=== PATIENT | female | born 1990 | race Caucasian/White ===

== ENCOUNTER 2017-04-12 23:38 | Emergency (ER) | payer OTHER ==
[~2017-04-12] VITALS: Ht 172.7 cm; Wt 62.0 kg
[2017-04-12 23:43] VITALS: TEMP 36.5; Ht 172.7 cm; Wt 62.0 kg
[2017-04-13 00:06] LABS: BASO % 0.5 %; BASO ABS # 0.04 K/uL (0-0.2); COMPLETE YES; EOS % 2.1 %; HEMATOCRIT 39.4 % (37-47); IG% 0.3 %; LYMPH % 38.1 %; LYMPH ABS # 2.87 K/uL (1.2-3.4); MEAN CORPUSCULAR HEMOGLOBIN 28.8 pg (25-34); MEAN CORPUSCULAR HGB CONC 34.3 g/dl (32-36); MEAN PLATELET VOLUME 10.5 fL (7.4-10.4); MONO % 11.2 %; NEUT % 47.8 %; PLATELET COUNT 251 K/uL (130-400); RED BLOOD COUNT 4.69 M/uL (4.2-5.4); WHITE BLOOD COUNT 7.53 K/uL (4.8-10.8)
[2017-04-13 00:08] LABS: URINE APPEARANCE CLEAR (CLEAR); URINE BILIRUBIN NEG (NEG); URINE COLOR YELLOW; URINE NITRITE NEG (NEG); URINE PH 5.5 (4.5-7.5); URINE SPECIFIC GRAVITY 1.011 (1.000-1.030); UROBILINOGEN NEG (NEG)
--- NOTE | 2017-04-13 00:08 | EMERGENCY ROOM VISIT NOTE ---
History Report prepared by Lucilleibe: Jeanne Mooney Under the Supervision of: Dr. Annika Stoddard D.O. First contact with patient: 23:46 Chief Complaint: ABDOMINAL PAIN Stated Complaint: LEFT SIDED ABDOMINAL PAIN History of Present Illness The patient is a 26 year old female who presents to the Emergency Room with complaints of severe constant lower left sided abdominal pain which started about 30 minutes ago. The patient notes that she started to have pain in her upper abdomen a couple days ago and that it started to travel to her lower abdomen today. The patient has a hernia in her right lower abdomen. She notes some nausea but denies any vomiting or cough. The patient's pain is better since arriving to the ED. The patient's last period was 3 weeks ago, she is not on control, she denies trying to get , and she has no history of gynecologic problems. The patient is self employed. The patient notes her past surgery history only includes oral surgery. Source of History: patient Onset: 30 minutes ago Position: abdomen (LLQ) Symptom Intensity: moderate Timing: constant Associated Symptoms: + nausea, No cough, No vomiting Review of Systems See HPI for pertinent positives & negatives. A total of 10 systems reviewed and were otherwise negative. Past Medical & Surgical Medical Problems: (1) Hernia Family History no pertinent family history stated Social History Smoking Status: Never Smoker Occupation Status: employed Current/Historical Medications No Active Prescriptions or Reported Meds Allergies Coded Allergies: Amoxicillin (Verified Allergy, Unknown, cp, 04/13/17) Physical Exam Vital Signs Date Time Temp Pulse Resp B/P (MAP) Pulse Ox O2 Delivery O2 Flow Rate FiO2 04/13/17 01:47 80 18 118/71 97 Room Air 04/12/17 23:43 36.5 87 18 153/91 96 Room Air Physical Exam HEENT: Head - normocephalic and atraumatic Pupils are equal, round, and reactive to light. Extraocular eye muscles are intact, and sclera are anicteric. Nose - moist nasal mucosa without discharge. Mouth - moist buccal mucosa. Oropharynx is nonerythematous and there is no tonsillar exudate or edema noted. Neck: Supple; no JVD, nuchal rigidity, cervical lymphadenopathy. Heart: Regular rate and rhythm. There is a normal S1 and S2 with no murmurs, clicks, or gallops appreciated. Lungs: Clear to auscultation bilaterally with no wheezes, rales, or rhonchi. Abdomen: Soft, slight tenderness with palpation of left inguinal canal, nondistended, with good bowel sounds. There are no palpable pulsatile masses or hepatosplenomegaly. There is no guarding, rigidity, or rebound noted. Extremities: No evidence of cyanosis, clubbing, or edema. There are easily palpable peripheral pulses. Skin: warm and dry with good turgor and no rashes. Medical Decision & Procedures ER Provider Diagnostic Interpretation: Radiology results as stated below per my review and the radiologist's interpretation: Obstruction series No obvious sign of bowel obstruction, normal bowel gas pattern. Laboratory Results 04/12/17 23:55 Red Blood Count 4.69, Mean Corpuscular Volume 84.0, Mean Corpuscular Hemoglobin 28.8, Mean Corpuscular Hemoglobin Concent 34.3, Mean Platelet Volume 10.5, Neutrophils (%) (Auto) 47.8, Lymphocytes (%) (Auto) 38.1, Monocytes (%) (Auto) 11.2, Eosinophils (%) (Auto) 2.1, Basophils (%) (Auto) 0.5, Neutrophils # (Auto ) 3.60, Lymphocytes # (Auto) 2.87, Monocytes # (Auto) 0.84, Eosinophils # (Auto ) 0.16, Basophils # (Auto) 0.04 04/12/17 23:55 Test 04/12/17 23:50 04/12/17 23:55 Urine Color YELLOW Urine Appearance CLEAR (CLEAR) Urine pH 5.5 (4.5-7.5) Urine Specific [place] 1.011 (1.000-1.030) Urine Protein NEG (NEG) Urine Glucose (UA) NEG (NEG) Urine Ketones NEG (NEG) Urine Occult Blood NEG (NEG) Urine Nitrite NEG (NEG) Urine Bilirubin NEG (NEG) Urine Urobilinogen NEG (NEG) Urine Leukocyte Esterase NEG (NEG) Urine Test NEG (NEG) White Blood Count 7.53 K/uL (4.8-10.8) Red Blood Count 4.69 M/uL (4.2-5.4) Hemoglobin 13.5 g/dL (12.0-16.0) Hematocrit 39.4 % (37-47) Mean Corpuscular Volume 84.0 fL (80-100) Mean Corpuscular Hemoglobin 28.8 pg (25-34) Mean Corpuscular Hemoglobin Concent 34.3 g/dl (32-36) Platelet Count 251 K/uL (130-400) Mean Platelet Volume 10.5 fL (7.4-10.4) Neutrophils (%) (Auto) 47.8 % Lymphocytes (%) (Auto) 38.1 % Monocytes (%) (Auto) 11.2 % Eosinophils (%) (Auto) 2.1 % Basophils (%) (Auto) 0.5 % Neutrophils # (Auto) 3.60 K/uL (1.4-6.5) Lymphocytes # (Auto) 2.87 K/uL (1.2-3.4) Monocytes # (Auto) 0.84 K/uL (0.11-0.59) Eosinophils # (Auto) 0.16 K/uL (0-0.5) Basophils # (Auto) 0.04 K/uL (0-0.2) RDW Standard Deviation 43.8 fL (36.4-46.3) RDW Coefficient of Variation 14.3 % (11.5-14.5) Immature Granulocyte % (Auto) 0.3 % Immature Granulocyte # (Auto) 0.02 K/uL (0.00-0.02) Anion Gap 10.0 mmol/L (3-11) Est Creatinine Clear Calc Drug Dose 89.9 ml/min Estimated GFR () 98.9 Estimated GFR (Non- 85.3 BUN/Creatinine Ratio 11.7 (10-20) Calcium Level 9.6 mg/dl (8.5-10.1) Total Bilirubin 0.3 mg/dl (0.2-1) Direct Bilirubin < 0.1 mg/dl (0-0.2) Aspartate Amino Transf (AST/SGOT) 15 U/L (15-37) Alanine Aminotransferase (ALT/SGPT) 18 U/L (12-78) Alkaline Phosphatase 72 U/L (45-117) Total Protein 8.6 gm/dl (6.4-8.2) Albumin 3.8 gm/dl (3.4-5.0) Lipase 122 U/L (73-393) Laboratory results per my review. ED Course 2348: The patient was evaluated in room B10. A complete history and physical exam was performed. An IV lock was initiated and labs were drawn as above. The patient went for an obstruction series which was unremarkable. 0103: The patient is symptom free. 0111: Upon reevaluation, the patient is resting comfortably. I discussed findings and results with her. She verbalized agreement of the treatment plan. The patient was discharged home. Medical Decision The patient is a 26 year old female who presents to the ED with lower left sided abdominal pain. Differential diagnosis includes inguinal hernia, ovarian torsion, ovarian cyst, ectopic , pyelonephritis, ureteral colic, and cystitis. Lab results show: no leukocytosis, stable H & H, normal renal and glucose, normal lipase and LFT, potassium low at 3.2, normal urine and negative . The patient presents to the emergency department after a sudden onset of left lower quadrant abdominal pain 30 minutes ago. She denies ever having pain like this in the past. While here in the emergency department, the pain completely subsided. The patient is not and has a normal urinalysis. We did talk about the possibility of ovarian torsion and she was instructed to return to the emergency department if the pain itself returned. Otherwise, she'll follow up with her PCP. X-rays of the abdomen show a normal bowel gas pattern. The patient was instructed to take foods time potassium. Medication Reconcilliation Current Medication List: was personally reviewed by me Blood Pressure Screening Patient's blood pressure: Elevated blood pressure Blood pressure disposition: Elevated BP felt to be situational Impression Primary Impression: Left lower quadrant pain Additional Impression: Hypokalemia Scribe Attestation The scribe's documentation has been prepared under my direction and personally reviewed by me in its entirety. I confirm that the note above accurately reflects all work, treatment, procedures, and medical decision making performed by me. Departure Information Dispostion Home / Self-Care Prescriptions No Active Prescriptions or Reported Meds Referrals No Doctor, Assigned (PCP) Forms HOME CARE DOCUMENTATION FORM, IMPORTANT VISIT INFORMATION Patient Instructions ED Abdominal Pain Unkn Cause, My [facility] Additional Instructions Rest. Take a bland diet If you have worsening pain, return to the ER. Otherwise, follow up with your PCP Take foods high in potassium Problem Qualifiers
[2017-04-13 00:11] LABS: MANUAL MICROSCOPIC REQUIRED? NO; REVIEW REQ? NO
[2017-04-13 00:23] LABS: ALT/SGPT 18 U/L (12-78); BLOOD UREA NITROGEN 11 mg/dl (7-18); BUN/CREATININE RATIO 11.7 (10-20); CALCIUM 9.6 mg/dl (8.5-10.1); CARBON DIOXIDE 24 mmol/L (21-32); CHLORIDE 104 mmol/L (98-107); CREATININE 0.92 mg/dl (0.60-1.20); GLUCOSE 90 mg/dl (70-99); POTASSIUM 3.2 mmol/L (3.5-5.1); SODIUM 138 mmol/L (136-145)
[2017-04-13 00:26] LABS: ALKALINE PHOSPHATASE 72 U/L (45-117); AST/SGOT 15 U/L (15-37)
[2017-04-13 01:47] VITALS: BP 118/71; PULSE 80; O2SAT 97
--- NOTE | 2017-04-13 08:03 | DIAGNOSTIC IMAGING REPORT ---
ABDOMEN 2VIEW W/PA CHEST RTN HISTORY: 26 years-old Female left sided abd. pain acute left sided abdominal pain which has progressively worsened. COMPARISON: None available TECHNIQUE: Frontal view of the chest with erect and supine views of the abdomen FINDINGS: Cardiomediastinal and hilar silhouettes are within normal limits. There is no pneumothorax, pleural effusion or focal airspace consolidation. No pneumoperitoneum on the upright projection. Bowel gas pattern is nonobstructive. No urolithiasis or organomegaly. 5 degrees convex right curvature of the lumbar spine is noted which may be accentuated by positioning. No fracture. There are a few air-fluid levels noted within bowel of the right lower quadrant. IMPRESSION: 1. No acute cardiopulmonary process. 2. Nonobstructive bowel gas pattern without pneumoperitoneum. 3. A few air-fluid levels are noted within bowel of the right lower quadrant which appears to be within colon, nonspecific. Differential considerations would include diarrheal state, enteritis or focal ileus. The above report was generated using voice recognition software. It may contain grammatical, syntax or spelling errors. Electronically signed by: Khris Armas M.D. 04/13/2017 8:02 AM Dictated Date/Time: 04/13/2017 7:59 AM
== END 2017-04-13 01:46 | disposition home or self-care (01) ==
LOC: C.EDB 23:39
DX: R10.32 Left lower quadrant pain (principal); E87.6 Hypokalemia

== ENCOUNTER 2017-04-13 07:31 | Emergency (ER) | payer OTHER ==
[~2017-04-13] VITALS: Ht 172.7 cm; Wt 61.2 kg
[2017-04-13 07:32] VITALS: TEMP 36.8; Ht 172.7 cm; Wt 61.2 kg
[2017-04-13] MEDS ORDERED: SODIUM CHLORIDE 0.9% 1000ML 1,000 ML IV STA (07:58)
[2017-04-13] MEDS ORDERED: ONDANSETRON INJ 2 MG/ML 2 ML VIAL IV STA (07:58)
[2017-04-13] MEDS ORDERED: KETOROLAC TROMETHAMINE 15 MG/ML VIAL IV STA ×2 (08:09→09:24)
[2017-04-13] MEDS ORDERED: KETOROLAC TROMETHAMINE 30 MG/ML VIAL ONE ×2 (08:13→09:30)
--- NOTE | 2017-04-13 08:23 | EMERGENCY ROOM VISIT NOTE ---
History First contact with patient: 07:35 Chief Complaint: ABDOMINAL PAIN Stated Complaint: REVISIT; PAIN IN LOWER STOMACH Nursing Triage Summary: patient presents with c/o left sided lower abdominal pain that began yesterday Patient states she also is vomiting, reports liquid emesis twice Was evaluated in the ED last night History of Present Illness The patient is a 26 year old female who presents to the Emergency Room with complaints of persistent left lower quadrant abdominal pain. The patient was seen late last night for pain in the left lower abdomen. Her workup was negative at that time and her pain resolved after about 30 minutes. She states that after returning home, she began having pain again and also developed diarrhea. She states she developed vomiting later that night and has had 2 episodes of vomiting. She states that the vomiting exacerbates her pain. She rates the discomfort a 7/10 when she has pain, but states it is intermittent and she currently does not have any discomfort. She took Aleve without relief. She has not used anything since yesterday evening. She reports that she is concerned she might have ovarian torsion as a pelvic ultrasound was performed yesterday. She also reports she has an older sister with a history of diverticulitis. She denies fevers/chills, urinary symptoms, abnormal vaginal discharge, melena, or hematochezia. She denies history of abdominal surgery. Review of Systems A complete 10 point review of systems was reviewed with the patient with pertinent positives and negatives as per history of present illness. All else were negative. Past Medical/Surgical History Medical Problems: (1) Hernia Social History Smoking Status: Never Smoker Occupation Status: employed Current/Historical Medications No Active Prescriptions or Reported Meds Physical Exam Vital Signs Date Time Temp Pulse Resp B/P (MAP) Pulse Ox O2 Delivery O2 Flow Rate FiO2 04/13/17 10:28 82 16 109/68 100 04/13/17 09:04 84 18 134/74 100 Room Air 04/13/17 07:32 36.8 89 16 123/88 99 Room Air Physical Exam VITALS: Vitals are noted on the nurse's note and reviewed by myself. Vital signs stable. GENERAL: This is a 26-year-old female, in no acute distress, nondiaphoretic, well-developed well-nourished. HEENT: Normocephalic. PERRLA. Mucous membranes moist. Neck is supple without nuchal rigidity. HEART: Regular rate and rhythm without murmurs gallops or rubs. LUNGS: Clear to auscultation bilaterally without wheezes, rales or rhonchi. No retractions or accessory muscle use. ABDOMEN: Positive bowel sounds x 4. Soft, no masses or organomegaly. Tenderness with deep palpation of the left lower quadrant. No guarding or rebound tenderness. MUSCULOSKELETAL: No gross musculoskeletal defects. No pedal edema. No calf tenderness. NEURO: Patient was alert and oriented to person place and time. Medical Decision & Procedures ER Provider Diagnostic Interpretation: PELVIC COMPLETE NON OB FINDINGS: TRANSABDOMINAL: Anteflexed uterus measures 8.4 x 4.7 x 6.4 cm. Endometrium measures 1.5 cm. Urinary bladder is mostly collapsed. Left ovary measures 3.1 x 2.4 cm. Mild free pelvic fluid noted. TRANSVAGINAL: Endometrium measures 1.4 cm. Mild degree of free pelvic fluid is noted within the cul-de-sac and adjacent to the left ovary. Left ovary measures 3.7 x 5.1 x 2.6 cm. Mildly complex cystic structure in the left ovary is seen measuring up to 2.4 cm suggesting involuting follicle. Arterial inflow is documented within the left ovary. Right ovary measures 2.8 x 2.6 x 1.7 cm. Follicles are seen within the right ovary measuring up to 1.7 cm. Arterial inflow is documented within the right ovary. IMPRESSION: 1. No evidence of ovarian torsion. 2. Involuting follicle of the left ovary, 2.4 cm. 3. Mild free pelvic fluid is likely reactive. 4. Normal sonographic appearance of the uterus and endometrium. Laboratory Results 04/13/17 08:20 Red Blood Count 4.94, Mean Corpuscular Volume 83.6, Mean Corpuscular Hemoglobin 27.9, Mean Corpuscular Hemoglobin Concent 33.4, Mean Platelet Volume 10.6, Neutrophils (%) (Auto) 70.8, Lymphocytes (%) (Auto) 17.9, Monocytes (%) (Auto) 10.4, Eosinophils (%) (Auto) 0.4, Basophils (%) (Auto) 0.4, Neutrophils # (Auto ) 5.17, Lymphocytes # (Auto) 1.31, Monocytes # (Auto) 0.76, Eosinophils # (Auto ) 0.03, Basophils # (Auto) 0.03 04/13/17 08:20 Test 9/4/17 08:20 04/13/17 09:36 White Blood Count 7.31 K/uL (4.8-10.8) Red Blood Count 4.94 M/uL (4.2-5.4) Hemoglobin 13.8 g/dL (12.0-16.0) Hematocrit 41.3 % (37-47) Mean Corpuscular Volume 83.6 fL (80-100) Mean Corpuscular Hemoglobin 27.9 pg (25-34) Mean Corpuscular Hemoglobin Concent 33.4 g/dl (32-36) Platelet Count 266 K/uL (130-400) Mean Platelet Volume 10.6 fL (7.4-10.4) Neutrophils (%) (Auto) 70.8 % Lymphocytes (%) (Auto) 17.9 % Monocytes (%) (Auto) 10.4 % Eosinophils (%) (Auto) 0.4 % Basophils (%) (Auto) 0.4 % Neutrophils # (Auto) 5.17 K/uL (1.4-6.5) Lymphocytes # (Auto) 1.31 K/uL (1.2-3.4) Monocytes # (Auto) 0.76 K/uL (0.11-0.59) Eosinophils # (Auto) 0.03 K/uL (0-0.5) Basophils # (Auto) 0.03 K/uL (0-0.2) RDW Standard Deviation 43.9 fL (36.4-46.3) RDW Coefficient of Variation 14.3 % (11.5-14.5) Immature Granulocyte % (Auto) 0.1 % Immature Granulocyte # (Auto) 0.01 K/uL (0.00-0.02) Anion Gap 10.0 mmol/L (3-11) Est Creatinine Clear Calc Drug Dose 97.2 ml/min Estimated GFR () 110.4 Estimated GFR (Non- 95.3 BUN/Creatinine Ratio 13.6 (10-20) Calcium Level 9.9 mg/dl (8.5-10.1) Total Bilirubin 0.4 mg/dl (0.2-1) Aspartate Amino Transf (AST/SGOT) 14 U/L (15-37) Alanine Aminotransferase (ALT/SGPT) 18 U/L (12-78) Alkaline Phosphatase 70 U/L (45-117) Total Protein 8.7 gm/dl (6.4-8.2) Albumin 4.3 gm/dl (3.4-5.0) Globulin 4.4 gm/dl (2.5-4.0) Albumin/Globulin Ratio 1.0 (0.9-2) Urine Color YELLOW Urine Appearance CLEAR (CLEAR) Urine pH 6.5 (4.5-7.5) Urine Specific [place] 1.022 (1.000-1.030) Urine Protein NEG (NEG) Urine Glucose (UA) NEG (NEG) Urine Ketones 1+ (NEG) Urine Occult Blood NEG (NEG) Urine Nitrite NEG (NEG) Urine Bilirubin NEG (NEG) Urine Urobilinogen NEG (NEG) Urine Leukocyte Esterase NEG (NEG) Urine Test NEG (NEG) Medications Administered Medications (Trade) Dose Ordered Sig/Sandeep Route Start Time Stop Time Status Last Admin Dose Admin Sodium Chloride 1,000 ml @ 999 mls/hr Q1H1M STAT IV 04/13/17 07:58 04/13/17 08:58 DC 04/13/17 08:16 999 MLS/HR Ondansetron HCl (Zofran Inj) 4 mg NOW STAT IV 04/13/17 07:58 04/13/17 08:00 DC 04/13/17 08:16 4 MG Ketorolac Tromethamine (Toradol Inj) 30 mg STK-MED ONCE .ROUTE 04/13/17 08:13 04/13/17 08:14 DC 04/13/17 08:17 15 MG Ketorolac Tromethamine (Toradol Inj) 30 mg STK-MED ONCE .ROUTE 04/13/17 09:30 04/13/17 09:31 DC 04/13/17 09:32 15 MG ED Course The patient was evaluated as above. Labs were drawn and IV access was obtained. The patient denies pain at this time and analgesics. The patient began to complain of pain and was medicated with 15 mg Toradol IV. Pelvic ultrasound was performed and read by radiology as above. Patient was reevaluated and was feeling better. Findings were discussed. Repeat exam showed no tenderness. Discharge instructions were reviewed with the patient. The patient verbalized understanding of my assessment and treatment plan and was discharged home in good condition. Medical Decision Differential diagnosis includes ovarian cyst, ovarian torsion, appendicitis, diverticulitis, colitis, urinary tract infection, kidney stone, gastroenteritis , among others. The patient is a 26-year-old female who presents today complaining of left lower quadrant pain. Patient was seen here last night and had labs and an x- ray performed which were all unremarkable. At that time, her pain resolved and she was discharged home. The patient reports that her pain has continued and has been intermittent in nature. On my examination, she has no tenderness and is in minimal pain. Labs were unchanged from previous visit, with no leukocytosis, anemia or electrolyte abnormalities. Urinalysis was not suggestive of infection. There was no blood in the urine. A pelvic ultrasound was performed and did show a left ovarian follicular cyst which may be contributing to the patient's pain. She was informed of this and was instructed to follow-up with [facility]. The patient may also have gastroenteritis contribute into her symptoms today, although the vomiting and diarrhea could also be secondary to stress/anxiety regarding symptoms. Patient was reassured and conservative measures were discussed. I advised her to follow-up with her primary care provider this week for a recheck. Based on the patient's presentation and work up, I feel the patient is stable for outpatient treatment. The patient was educated to return to the emergency department for any worsening of their current condition or new/concerning symptoms. She will follow up with her PCP and [facility]. Medication Reconcilliation Current Medication List: was personally reviewed by me Blood Pressure Screening Patient's blood pressure: Normal blood pressure Impression Primary Impression: Left lower quadrant pain Departure Information Dispostion Home / Self-Care Condition GOOD Prescriptions No Active Prescriptions or Reported Meds Referrals Mirta Ramirez,D.O. (PCP) Patient Instructions My [facility] Additional Instructions Ibuprofen: 600 mg every 6 hours. You should take this regularly for the next 2- 3 days, then as needed for pain. You should take this with a small amount of food, as it can cause inflammation of the stomach. Call the primary care provider to schedule a follow-up this week. Follow-up with [facility]. Return to the emergency department with significantly worsening pain, worsening vomiting, fever, or any other new/concerning symptoms.
[2017-04-13 08:31] LABS: BASO % 0.4 %; BASO ABS # 0.03 K/uL (0-0.2); COMPLETE YES; EOS % 0.4 %; HEMATOCRIT 41.3 % (37-47); IG% 0.1 %; LYMPH % 17.9 %; LYMPH ABS # 1.31 K/uL (1.2-3.4); MEAN CELL VOLUME 83.6 fL (80-100); MEAN CORPUSCULAR HEMOGLOBIN 27.9 pg (25-34); MEAN CORPUSCULAR HGB CONC 33.4 g/dl (32-36); MEAN PLATELET VOLUME 10.6 fL (7.4-10.4); MONO % 10.4 %; NEUT % 70.8 %; PLATELET COUNT 266 K/uL (130-400); RED BLOOD COUNT 4.94 M/uL (4.2-5.4); WHITE BLOOD COUNT 7.31 K/uL (4.8-10.8)
[2017-04-13 08:55] LABS: BUN/CREATININE RATIO 13.6 (10-20); CALCIUM 9.9 mg/dl (8.5-10.1); CREATININE 0.84 mg/dl (0.60-1.20); POTASSIUM 3.8 mmol/L (3.5-5.1)
--- NOTE | 2017-04-13 09:21 | DIAGNOSTIC IMAGING REPORT ---
PELVIC COMPLETE NON OB HISTORY: 26 years-old Female llq pain, vomiting acute left lower quadrant abdominal pain with vomiting. COMPARISON: Acute abdominal series radiographs of same day TECHNIQUE: Multiple real-time sonographic images of the deep pelvic structures were obtained transabdominally and transvaginally assessing grayscale appearance, color and spectral flow. FINDINGS: TRANSABDOMINAL: Anteflexed uterus measures 8.4 x 4.7 x 6.4 cm. Endometrium measures 1.5 cm. Urinary bladder is mostly collapsed. Left ovary measures 3.1 x 2.4 cm. Mild free pelvic fluid noted. TRANSVAGINAL: Endometrium measures 1.4 cm. Mild degree of free pelvic fluid is noted within the cul-de-sac and adjacent to the left ovary. Left ovary measures 3.7 x 5.1 x 2.6 cm. Mildly complex cystic structure in the left ovary is seen measuring up to 2.4 cm suggesting involuting follicle. Arterial inflow is documented within the left ovary. Right ovary measures 2.8 x 2.6 x 1.7 cm. Follicles are seen within the right ovary measuring up to 1.7 cm. Arterial inflow is documented within the right ovary. IMPRESSION: 1. No evidence of ovarian torsion. 2. Involuting follicle of the left ovary, 2.4 cm. 3. Mild free pelvic fluid is likely reactive. 4. Normal sonographic appearance of the uterus and endometrium. The above report was generated using voice recognition software. It may contain grammatical, syntax or spelling errors. Electronically signed by: Khris Armas M.D. 04/13/2017 9:20 AM Dictated Date/Time: 04/13/2017 9:14 AM
[2017-04-13 09:49] LABS: URINE APPEARANCE CLEAR (CLEAR); URINE BILIRUBIN NEG (NEG); URINE COLOR YELLOW; URINE NITRITE NEG (NEG); URINE PH 6.5 (4.5-7.5); URINE SPECIFIC GRAVITY 1.022 (1.000-1.030); UROBILINOGEN NEG (NEG); ZZUR CULT IF INDIC CLEAN CATCH NO
[2017-04-13 09:53] LABS: MANUAL MICROSCOPIC REQUIRED? NO; REVIEW REQ? NO
[2017-04-13 10:28] VITALS: BP 109/68; PULSE 82; O2SAT 100
== END 2017-04-13 10:29 | disposition home or self-care (01) ==
LOC: C.EDB 07:31
DX: R10.32 Left lower quadrant pain (principal); R19.7 Diarrhea, unspecified

== ENCOUNTER 2017-04-16 11:36 | Emergency (ER) | payer OTHER ==
[~2017-04-16] VITALS: Ht 172.7 cm; Wt 61.4 kg
[2017-04-16 11:43] VITALS: TEMP 37; Ht 172.7 cm; Wt 61.4 kg
[2017-04-16] MEDS ORDERED: SODIUM CHLORIDE 0.9% 1000ML 1,000 ML IV STA (12:07)
[2017-04-16] MEDS ORDERED: ONDANSETRON INJ 2 MG/ML 2 ML VIAL IV STA ×2 (12:26→13:38)
[2017-04-16] MEDS ORDERED: OPTIRAY 320 IV PRN (12:30)
[2017-04-16 12:40] LABS: URINE APPEARANCE CLEAR (CLEAR); URINE BILIRUBIN NEG (NEG); URINE COLOR YELLOW; URINE NITRITE NEG (NEG); UROBILINOGEN NEG (NEG); ZZUR CULT IF INDIC CLEAN CATCH NO
[2017-04-16 12:44] LABS: BASO % 0.2 %; BASO ABS # 0.01 K/uL (0-0.2); COMPLETE YES; EOS % 0.5 %; HEMATOCRIT 39.5 % (37-47); IG% 0.2 %; LYMPH % 18.5 %; MEAN CELL VOLUME 85.5 fL (80-100); MEAN CORPUSCULAR HEMOGLOBIN 28.1 pg (25-34); MEAN CORPUSCULAR HGB CONC 32.9 g/dl (32-36); MEAN PLATELET VOLUME 10.6 fL (7.4-10.4); MONO % 7.9 %; NEUT % 72.7 %; PLATELET COUNT 255 K/uL (130-400); RED BLOOD COUNT 4.62 M/uL (4.2-5.4); WHITE BLOOD COUNT 6.47 K/uL (4.8-10.8)
[2017-04-16 12:46] LABS: MANUAL MICROSCOPIC REQUIRED? NO; REVIEW REQ? NO
[2017-04-16 13:04] LABS: BUN/CREATININE RATIO 8.7 (10-20); CALCIUM 9.6 mg/dl (8.5-10.1); CREATININE 0.93 mg/dl (0.60-1.20); POTASSIUM 3.5 mmol/L (3.5-5.1)
[2017-04-16 13:26] LABS: PREG INTERNAL NEGATIVE QC NEG CLEAR BACKGROUND; PREG INTERNAL POSITIVE QC POS CONTROL LINE
[2017-04-16] MEDS ORDERED: KETOROLAC TROMETHAMINE 30 MG/ML VIAL IV STA (13:38)
--- NOTE | 2017-04-16 14:53 | DIAGNOSTIC IMAGING REPORT ---
CT OF THE ABDOMEN AND PELVIS WITH CONTRAST CLINICAL HISTORY: Left-sided abdominal pain. Chills. COMPARISON STUDY: Abdominal series and pelvic ultrasound April 13, 2017 TECHNIQUE: Following IV administration of 93 mL of Optiray-320, axial images of the abdomen and pelvis were obtained from the lung bases to the proximal femurs. Images were reviewed in the axial, sagittal, and coronal planes. IV contrast was administered without complication. A dose lowering technique was utilized adhering to the principles of ALARA. Oral contrast was administered. CT DOSE: 397.54 mGycm FINDINGS: Lung bases are clear. The liver, spleen, adrenal glands, kidneys and pancreas are unremarkable. There is no biliary or pancreatic ductal dilatation. There is no hydronephrosis. A small amount of fluid is noted within the pelvis. This fluid measures just above water attenuation. There is no evidence for a bowel obstruction. The appendix is normal. Apparent wall thickening of the sigmoid colon is likely due to underdistention. There is mild asymmetric enlargement of the left ovary. A 3.8 cm hyperdensity within left ovary is noted. Skeletal structures are unremarkable. IMPRESSION: 1. 3.8 cm hyperdense focus with the left ovary. Statistically, this represents a hemorrhagic cyst. However, a follow-up pelvic ultrasound in 6 weeks is recommended to exclude the less likely possibility of mass or endometrioma. 2. Small amount of fluid within the pelvis. 3. No bowel obstruction. Normal appendix. 4. Apparent mild wall thickening of the sigmoid colon. This is likely due to underdistention. A nonspecific colitis could appear similar although is considered less likely. Electronically signed by: Kirk Thomas M.D. 04/16/2017 2:52 PM Dictated Date/Time: 04/16/2017 2:40 PM
[2017-04-16 16:10] VITALS: BP 105/72; PULSE 80; O2SAT 99
--- NOTE | 2017-04-16 21:34 | EMERGENCY ROOM VISIT NOTE ---
History Report prepared by Nena: Rayray Anguiano Under the Supervision of: Dr. Brigido Friedman M.D. First contact with patient: 12:04 Chief Complaint: ABDOMINAL PAIN Stated Complaint: VOMITTING,NAUSIA,ABDOMINAL PAIN Nursing Triage Summary: Patient reports left lower quadrant pain ongoing this week. Patient also having n/v/d Seen here twice this week with same symptoms History of Present Illness The patient is a 26 year old female who presents to the Emergency Room with complaints of waxing and waning left lower quadrant pain that started 4 days ago. She says that she was seen here twice within 24 hours of the onset of symptoms, and during her second visit here, she was diagnosed with a small ovarian cyst from an ultrasound. The patient states that she has had a minimal appetite since the onset of pain, but has been able to drink some fluids. She adds that the pain sometimes radiates to her left flank. The patient notes that she has been having bad nausea and chills this week as well. She states that she has a hernia, and has been starting to get some pain in her right lower quadrant this week, and the pain is above the leg crease, without any pain around her thigh. The patient states that she did not have a bowel movement between 3 days ago and yesterday, but did have a bowel movement last night, which was normal without any melena or hematochezia. She does note that the bowel was a bit ict account manager in color. The patient says that she currently rates her left lower quadrant pain as a 5 out of 10 in severity. She says that for the past couple days, the pain has been waxing and waning, but the first couple days of the pain, the pain was constant and sharp. She states that Ibuprofen relieves the pain a bit, and the last Ibuprofen was 2000 last night. She notes that she saw her [facility] yesterday, and had an internal OBGYN examination as well as another ultrasound, which confirmed the small ovarian cyst. She states that this morning, she woke up and felt so weak, but she has not been sleeping well. The patient called her OBGYN back, and was told to come here to get her appendix checked. The patient notes no family history of inflammatory bowel issues, but does have a family history of kidney stones and cancer. The patient has no history of abdominal surgeries, and still has her major organs. Pt denies LOC, headache, fevers, diaphoresis, visual changes, neck pain, chest pain, breathing difficulties, back pain, urinary symptoms, numbness, weakness, lymphadenopathy, rash, or other complaints. Source of History: patient Onset: 4 days ago Position: abdomen (LLQ) Symptom Intensity: currently 5/10 Quality: sharp (especially initially) Timing: waxes/wanes Modifying Factors (Relieving): ibuprofen Associated Symptoms: + chills, + nausea, + abdominal pain (including some pain around hernia), + weakness Note: Associated symptoms: No bowel movement for 3 days, but did have one last night. Minimal appetite, not sleeping well. Some radiation of pain to left flank. Review of Systems See HPI for pertinent positives and negatives. A total of ten systems were reviewed and were otherwise negative. Past Medical & Surgical Medical Problems: (1) Hernia Family History Cancer Kidney stones Social History Smoking Status: Never Smoker Marital Status: single Occupation Status: employed Current/Historical Medications No Active Prescriptions or Reported Meds Allergies Coded Allergies: Amoxicillin (Verified Allergy, Unknown, cp, 04/16/17) Physical Exam Vital Signs Date Time Temp Pulse Resp B/P (MAP) Pulse Ox O2 Delivery O2 Flow Rate FiO2 04/16/17 16:10 80 18 105/72 99 04/16/17 15:02 78 16 143/76 99 Room Air 04/16/17 13:46 84 20 120/74 100 Room Air 04/16/17 11:43 37.0 80 18 141/83 99 Room Air Physical Exam GENERAL: Awake, alert, well-appearing, in no distress HENT: Normocephalic, atraumatic. Oropharynx unremarkable. EYES: Normal conjunctiva. Sclera non-icteric. NECK: Supple. No nuchal rigidity. FROM. No JVD. RESPIRATORY: Clear to auscultation. CARDIAC: Regular rate, normal rhythm. Extremities warm and well perfused. Pulses equal. ABDOMEN: Soft, non-distended. Right lower quadrant tenderness. Minimal left- sided discomfort. Negative obturator psoas. No rebound or guarding. No masses. RECTAL: Deferred. MUSCULOSKELETAL: Chest examination reveals no tenderness. The back is symmetrical on inspection without obvious abnormality. There is no CVA tenderness to palpation. No joint edema. LOWER EXTREMITIES: Calves are equal size bilaterally and non-tender. No edema. No discoloration. NEURO: Normal sensorium. No sensory or motor deficits noted. SKIN: No rash or jaundice noted. Medical Decision & Procedures ER Provider Diagnostic Interpretation: CT: Radiology results as stated below per my review and radiologist interpretation CT OF THE ABDOMEN AND PELVIS WITH CONTRAST CLINICAL HISTORY: Left-sided abdominal pain. Chills. COMPARISON STUDY: Abdominal series and pelvic ultrasound April 13, 2017 TECHNIQUE: Following IV administration of 93 mL of Optiray-320, axial images of the abdomen and pelvis were obtained from the lung bases to the proximal femurs. Images were reviewed in the axial, sagittal, and coronal planes. IV contrast was administered without complication. A dose lowering technique was utilized adhering to the principles of ALARA. Oral contrast was administered. CT DOSE: 397.54 mGycm FINDINGS: Lung bases are clear. The liver, spleen, adrenal glands, kidneys and pancreas are unremarkable. There is no biliary or pancreatic ductal dilatation. There is no hydronephrosis. A small amount of fluid is noted within the pelvis. This fluid measures just above water attenuation. There is no evidence for a bowel obstruction. The appendix is normal. Apparent wall thickening of the sigmoid colon is likely due to underdistention. There is mild asymmetric enlargement of the left ovary. A 3.8 cm hyperdensity within left ovary is noted. Skeletal structures are unremarkable. IMPRESSION: 1. 3.8 cm hyperdense focus with the left ovary. Statistically, this represents a hemorrhagic cyst. However, a follow-up pelvic ultrasound in 6 weeks is recommended to exclude the less likely possibility of mass or endometrioma. 2. Small amount of fluid within the pelvis. 3. No bowel obstruction. Normal appendix. 4. Apparent mild wall thickening of the sigmoid colon. This is likely due to underdistention. A nonspecific colitis could appear similar although is considered less likely. Electronically signed by: Kirk Thomas M.D. 04/16/2017 2:52 PM Dictated Date/Time: 04/16/2017 2:40 PM Laboratory Results 04/16/17 12:15 Red Blood Count 4.62, Mean Corpuscular Volume 85.5, Mean Corpuscular Hemoglobin 28.1, Mean Corpuscular Hemoglobin Concent 32.9, Mean Platelet Volume 10.6, Neutrophils (%) (Auto) 72.7, Lymphocytes (%) (Auto) 18.5, Monocytes (%) (Auto) 7.9, Eosinophils (%) (Auto) 0.5, Basophils (%) (Auto) 0.2, Neutrophils # (Auto) 4.71, Lymphocytes # (Auto) 1.20, Monocytes # (Auto) 0.51, Eosinophils # (Auto) 0.03, Basophils # (Auto) 0.01 04/16/17 12:15 Test 04/16/17 11:50 04/16/17 12:15 Urine Color YELLOW Urine Appearance CLEAR (CLEAR) Urine pH 5.0 (4.5-7.5) Urine Specific Spring 1.020 (1.000-1.030) Urine Protein NEG (NEG) Urine Glucose (UA) NEG (NEG) Urine Ketones TRACE (NEG) Urine Occult Blood NEG (NEG) Urine Nitrite NEG (NEG) Urine Bilirubin NEG (NEG) Urine Urobilinogen NEG (NEG) Urine Leukocyte Esterase NEG (NEG) White Blood Count 6.47 K/uL (4.8-10.8) Red Blood Count 4.62 M/uL (4.2-5.4) Hemoglobin 13.0 g/dL (12.0-16.0) Hematocrit 39.5 % (37-47) Mean Corpuscular Volume 85.5 fL (80-100) Mean Corpuscular Hemoglobin 28.1 pg (25-34) Mean Corpuscular Hemoglobin Concent 32.9 g/dl (32-36) Platelet Count 255 K/uL (130-400) Mean Platelet Volume 10.6 fL (7.4-10.4) Neutrophils (%) (Auto) 72.7 % Lymphocytes (%) (Auto) 18.5 % Monocytes (%) (Auto) 7.9 % Eosinophils (%) (Auto) 0.5 % Basophils (%) (Auto) 0.2 % Neutrophils # (Auto) 4.71 K/uL (1.4-6.5) Lymphocytes # (Auto) 1.20 K/uL (1.2-3.4) Monocytes # (Auto) 0.51 K/uL (0.11-0.59) Eosinophils # (Auto) 0.03 K/uL (0-0.5) Basophils # (Auto) 0.01 K/uL (0-0.2) RDW Standard Deviation 43.8 fL (36.4-46.3) RDW Coefficient of Variation 14.0 % (11.5-14.5) Immature Granulocyte % (Auto) 0.2 % Immature Granulocyte # (Auto) 0.01 K/uL (0.00-0.02) Anion Gap 8.0 mmol/L (3-11) Est Creatinine Clear Calc Drug Dose 88.1 ml/min Estimated GFR () 97.6 Estimated GFR (Non- 84.2 BUN/Creatinine Ratio 8.7 (10-20) Calcium Level 9.6 mg/dl (8.5-10.1) Total Bilirubin 0.5 mg/dl (0.2-1) Direct Bilirubin 0.1 mg/dl (0-0.2) Aspartate Amino Transf (AST/SGOT) 8 U/L (15-37) Alanine Aminotransferase (ALT/SGPT) 17 U/L (12-78) Alkaline Phosphatase 59 U/L (45-117) Total Protein 8.0 gm/dl (6.4-8.2) Albumin 3.7 gm/dl (3.4-5.0) Lipase 93 U/L (73-393) Human Chorionic Gonadotropin, Qual NEG (NEG) Laboratory results reviewed by me Medications Administered Medications (Trade) Dose Ordered Sig/Sandeep Route Start Time Stop Time Status Last Admin Dose Admin Sodium Chloride 1,000 ml @ 999 mls/hr Q1H1M STAT IV 04/16/17 12:07 04/16/17 13:07 DC 04/16/17 12:19 999 MLS/HR Ondansetron HCl (Zofran Inj) 4 mg NOW STAT IV 04/16/17 12:26 04/16/17 12:27 DC 04/16/17 12:58 4 MG Ondansetron HCl (Zofran Inj) 4 mg NOW STAT IV 04/16/17 13:38 04/16/17 13:39 DC 04/16/17 13:44 4 MG Ketorolac Tromethamine (Toradol Inj) 15 mg NOW STAT IV 04/16/17 13:38 04/16/17 13:39 DC 04/16/17 13:44 15 MG ED Course 1206: Past medical records reviewed: The patient was seen here on the 4th of this month twice. Labs and imaging were unremarkable. Vital signs were stable and she was treated conservatively and recommended to follow-up with OBGYN. 1207: Ordered NSS 1000 ml @ 999 mls/hr IV, Zofran Inj 4 mg IV. 1217: The patient was evaluated in room B10. A complete history and physical exam was performed. 1315: I reevaluated the patient and she is doing well. 1337: I reevaluated the patient and she is having some nausea and pain. 1338: Ordered Toradol Inj 15 mg IV. 1557: I reevaluated the patient and she is doing well. I updated her on the findings. The patient verbally expressed understanding and agreement of the treatment plan. The patient will be discharged. Medical Decision Triage Nursing notes reviewed. The patient's presentation and history were concerning for abdominal pain. Etiologies such as enteritis, mesenteric adenitis, appendicitis, diverticulitis , ovarian cyst, , obstruction, inflammatory bowel disease, renal colic , PUD, biliary pathology, pancreatitis, mesenteric ischemia, aortic pathology, infections, genitourinary, UTI, perforated viscus, tubo-ovarian abscess, PID, as well as others were entertained. The patient was evaluated. She was hydrated and treated with Zofran. She declined analgesia. She had tenderness in the right lower quadrant on examination but complained of pain there as well as pain in the left lower quadrant and left lateral abdomen. She had no appreciable tenderness on palpation of the left side of her abdomen. She did not have peritoneal findings. Her history was concerning as she has had persistent symptoms but also notes feeling chilled and has lost about 6 pounds since the start of her illness. She had unremarkable imaging done here. She had a repeat ultrasound and internal WH[facility] S[facility]ER examination done yesterday by her report. She noted her internal pelvic examination was normal. She denied having any significant tenderness. This would make PID, cervicitis, or uterine pathology unlikely. There is no clear evidence of torsion on imaging. Her history is not supportive of that. The patient had laboratory testing performed and CT imaging ordered to further elucidate the cause of her persistent symptoms especially in light of the chills and anorexia. Her CBC, chemistry panel, LFTs , lipase, and urinalysis were unremarkable. test is negative. The patient was reassessed and is tolerating her CT prep. She was informed of the laboratory results. The patient was treated with Toradol and Zofran and she had some increased symptoms. She underwent CT imaging and this did reveal some increase in size in the left ovarian cyst with what appears to be a small hemorrhagic component. The patient had a normal appendix. There was some questionable colitis as well. The patient did have diarrhea. The findings suggest that she had a ruptured cyst with some hemorrhagic component. She may also have had a mild colitis given the GI symptoms. Clinically she is doing very well at this time. Her symptoms were controlled with NSAIDs and Zofran. I discussed close follow-up with the patient. Repeat ultrasound imaging will be necessary. If she worsens in any way she will come back to the emergency department for reevaluation. The patient was educated. Warning signs and symptoms discussed. I gave my usual and customary discussion regarding this issue. By the evaluation outlined above other emergent etiologies such as those listed in the differential, as well as others, were deemed relatively unlikely. The patient was educated about the findings as listed above. All questions were answered and the patient was pleased with the treatment. Return instructions were outlined and the patient was discharged in stable condition. The patient was referred to her PCP for follow-up for a recheck of the current condition. Medication Reconcilliation Current Medication List: was personally reviewed by me Blood Pressure Screening Patient's blood pressure: Elevated blood pressure Blood pressure disposition: Elevated BP felt to be situational Impression Primary Impression: Lower abdominal pain Additional Impressions: Hemorrhagic ovarian cyst Colitis Scribe Attestation The scribe's documentation has been prepared under my direction and personally reviewed by me in its entirety. I confirm that the note above accurately reflects all work, treatment, procedures, and medical decision making performed by me. Departure Information Dispostion Home / Self-Care Prescriptions No Active Prescriptions or Reported Meds Referrals Mirta Ramirez D.O. (PCP) Forms HOME CARE DOCUMENTATION FORM, IMPORTANT VISIT INFORMATION, Work Instructions Patient Instructions My [facility] Additional Instructions Ibuprofen(Motrin, Advil) may be used for fever or pain. Use 600mg every six hours as needed. Take with food. Avoid using more than 2400mg in a 24 hour period. Do not use 2400mg per day for more than three consecutive days without physician direction. Prolonged inappropriate use can lead to stomach upset or ulcers. (AND/OR) Acetaminophen(Tylenol) may be used for fever or pain. Use 1000mg every six hours as needed. Avoid using more than 4000mg in a 24 hour period. Rest and drink plenty of fluids as tolerated. Slow sips of water or sports drinks are recommended instead of large amounts all at once. Continue current medications. Return to the ER immediately for worsening or persistent abdominal pain, vomiting, fevers, chest pains, difficulty breathing, black or bloody stools, worsening flank pain, passing out, worsening of your condition, or as needed. Follow up with your primary physician first thing next week for a recheck of your current condition. A repeat pelvic ultrasound will be necessary in 4-6 weeks to evaluate the ovarian cyst. Problem Qualifiers
== END 2017-04-16 16:10 | disposition home or self-care (01) ==
LOC: C.EDB 11:38
DX: K52.9 Noninfective gastroenteritis and colitis, unspecified (principal); N83.202 Unspecified ovarian cyst, left side; Z80.9 Family history of malignant neoplasm, unspecified; Z84.1 Family history of disorders of kidney and ureter

== ENCOUNTER 2017-08-09 16:51 | Emergency (ER) | payer OTHER ==
[~2017-08-09] VITALS: Ht 172.7 cm; Wt 59.0 kg
[2017-08-09 16:55] VITALS: TEMP 36.7; Ht 172.7 cm; Wt 59.0 kg
[2017-08-09] MEDS ORDERED: NAPR1TAB9 PO (17:30)
[2017-08-09 17:47] LABS: HEMATOCRIT 40.6 % (37-47); HEMOGLOBIN 13.7 g/dL (12.0-16.0); MEAN CELL VOLUME 83.5 fL (80-100); MEAN CORPUSCULAR HEMOGLOBIN 28.2 pg (25-34); MEAN CORPUSCULAR HGB CONC 33.7 g/dl (32-36); MEAN PLATELET VOLUME 10.5 fL (7.4-10.4); PLATELET COUNT 304 K/uL (130-400); RED CELL DISTRIBUTION WIDTH CV 13.5 % (11.5-14.5); RED CELL DISTRIBUTION WIDTH SD 41.4 fL (36.4-46.3); WHITE BLOOD COUNT 7.31 K/uL (4.8-10.8)
--- NOTE | 2017-08-09 18:02 | DIAGNOSTIC IMAGING REPORT ---
CHEST ONE VIEW PORTABLE CLINICAL HISTORY: CHEST PAIN dyspnea COMPARISON STUDY: 04/13/2017 FINDINGS: The bones soft tissues and hemidiaphragms are normal. The cardiomediastinal silhouette is normal. The lungs are clear. The pulmonary vasculature is normal. IMPRESSION: Negative chest. The above report was generated using voice recognition software. It may contain grammatical, syntax or spelling errors. Electronically signed by: Tito Manrique M.D. 08/09/2017 6:01 PM Dictated Date/Time: 08/09/2017 6:01 PM
--- NOTE | 2017-08-09 18:06 | EMERGENCY ROOM VISIT NOTE ---
History Report prepared by Nena: Corine Quiñonez Under the Supervision of: Dr. Messi Moreira M.D. First contact with patient: 16:59 Chief Complaint: CARDIAC ASSESSMENT Stated Complaint: CHEST PRESSURE History of Present Illness The patient is a 27 year old female who presents to the Emergency Room for a cardiac assessment. The patient states that she noticed constant pressure in the center of her chest 2-3 days ago. She states that she came to the ED today because it wasn't going away and she was worried about it. She reports that it kept her up last night. She states that the pain gets better when she is lying in certain positions. She denies anything making it worse. The patient notes that she had similar chest pain months ago that her PCP thought was a muscle after she had a normal ECG. She notes that she has not exercised recently due to a hernia and only did a little non strenuous work outside with her fiance. She notes that she went to [place] for [employer], but traveling that long is normal. The patient denies shortness of breath, back pain, shoulder pain, jaw pain, fever, cough, congestion, nausea, leg swelling, leg cramping, and diaphoresis. The patient denies a family history of blood clots and being on control. She notes that she had a CT done for an ovarian cyst in April. Source of History: patient Onset: 3 days ago Position: chest Quality: pressure Timing: constant Modifying Factors (Relieving): other (certain positions) Associated Symptoms: No fevers, No diaphoresis, No cough, No SOB, No nausea , No back pain Note: The patient denies shoulder pain, jaw pain, congestion, leg swelling, and leg cramping. Review of Systems See HPI for pertinent positives & negatives. A total of 10 systems reviewed and were otherwise negative. Past Medical & Surgical Medical Problems: (1) Hernia Family History Cancer Kidney stones Social History Smoking Status: Never Smoker Marital Status: in relationship Housing Status: lives with significant other Occupation Status: employed Current/Historical Medications Scheduled PRN Naproxen (Aleve), 220 MG PO UD PRN for cramps Allergies Coded Allergies: Amoxicillin (Verified Allergy, Unknown, cp, 08/09/17) Physical Exam Vital Signs Date Time Temp Pulse Resp B/P (MAP) Pulse Ox O2 Delivery O2 Flow Rate FiO2 08/09/17 18:41 85 20 114/71 100 Room Air 08/09/17 17:26 99 Room Air 08/09/17 16:55 36.7 107 20 143/87 92 Room Air Physical Exam GENERAL: Patient is in no acute distress. HEENT: No acute trauma, normocephalic atraumatic, mucous membranes moist, no nasal congestion, no scleral icterus. NECK: No stridor, no adenopathy, no meningismus, trachea is midline. LUNGS: Clear to auscultation bilaterally, no wheeze, no rhonchi, breath sounds equal. HEART: Without murmurs gallops or rubs, regular rate and rhythm. CHEST: Nontender chest wall. ABDOMEN: Soft, nontender, bowel sounds positive, no hernias, no peritonitis. EXTREMITIES: No cyanosis or edema, full range of motion of all the joints without pain or difficulty, no signs for acute trauma. NEUROLOGIC: Oriented x 3, no acute motor or sensory deficits, no focal weakness. SKIN: No rash, no jaundice, no diaphoresis. Medical Decision & Procedures ER Provider Diagnostic Interpretation: Radiology results as stated below per my review and radiologist interpretation: CHEST ONE VIEW PORTABLE CLINICAL HISTORY: CHEST PAIN dyspnea COMPARISON STUDY: 04/13/2017 FINDINGS: The bones soft tissues and hemidiaphragms are normal. The cardiomediastinal silhouette is normal. The lungs are clear. The pulmonary vasculature is normal. IMPRESSION: Negative chest. The above report was generated using voice recognition software. It may contain grammatical, syntax or spelling errors. Electronically signed by: Tito Manrique M.D. 08/09/2017 6:01 PM Dictated Date/Time: 08/09/2017 6:01 PM Laboratory Results 08/09/17 17:28 08/09/17 17:28 Test 08/09/17 17:28 08/09/17 17:33 Red Blood Count 4.86 M/uL (4.2-5.4) Mean Corpuscular Volume 83.5 fL (80-100) Mean Corpuscular Hemoglobin 28.2 pg (25-34) Mean Corpuscular Hemoglobin Concent 33.7 g/dl (32-36) RDW Standard Deviation 41.4 fL (36.4-46.3) RDW Coefficient of Variation 13.5 % (11.5-14.5) Mean Platelet Volume 10.5 fL (7.4-10.4) Anion Gap 9.0 mmol/L (3-11) Est Creatinine Clear Calc Drug Dose 94.0 ml/min Estimated GFR () 111.2 Estimated GFR (Non- 96.0 BUN/Creatinine Ratio 14.2 (10-20) Calcium Level 9.8 mg/dl (8.5-10.1) Troponin I < 0.015 ng/ml (0-0.045) Bedside D-Dimer 438 ng/mlFEU (0-450) Laboratory results reviewed by me. ECG Indication: chest pain Rate (beats per minute): 94 Rhythm: normal sinus Findings: no acute ischemic change, no ectopy, other (no dysrhythmia) ED Course 170: The patient was evaluated in room C7. A complete history and physical exam was performed. 1838: Reevaluated the patient. Discussed results and discharge instructions: She verbalized understanding and agreement. The patient is ready for discharge. Medical Decision Differential diagnoses include musculoskeletal pain, bronchitis, pneumonia, CHF , PE, aortic dissection, electrolyte abnormality, anemia, ND, dysrhythmia. There is no leukocytosis or concerning anemia. No significant electrolyte abnormality or kidney failure. D-dimer testing is negative. With a negative d- dimer and my low suspicion for PE, I will stop the workup for this diagnosis. EKG shows a normal sinus rhythm, no acute ischemia, no dysrhythmia. Cardiac enzyme testing times one is not consistent with acute cardiac injury. Chest film does not show pneumonia, mediastinal widening or pneumothorax. The patient presents with anterior chest pain. Pain does seem worse with certain positions. Her workup here is benign. The pain is likely musculoskeletal. She has been reassured. She is being discharged home. Medication Reconcilliation Current Medication List: was personally reviewed by me Blood Pressure Screening Patient's blood pressure: Elevated blood pressure Blood pressure disposition: Elevated BP felt to be situational Impression Primary Impression: Precordial chest pain Scribe Attestation The scribe's documentation has been prepared under my direction and personally reviewed by me in its entirety. I confirm that the note above accurately reflects all work, treatment, procedures, and medical decision making performed by me. Departure Information Dispostion Home / Self-Care Referrals Mirta Ramirez D.O. (PCP) Forms IMPORTANT VISIT INFORMATION Patient Instructions My [facility] Additional Instructions motrin (ibuprofen) 3 tab 3x per day for 5 days heat to the chest wall should help rest return if worsening heart and lung testing today was all ok
[2017-08-09 18:11] LABS: BLOOD UREA NITROGEN 12 mg/dl (7-18); CALCIUM 9.8 mg/dl (8.5-10.1); CARBON DIOXIDE 26 mmol/L (21-32); CREATININE 0.83 mg/dl (0.60-1.20); GLUCOSE 95 mg/dl (70-99)
[2017-08-09 18:37] LABS: POTASSIUM 3.7 mmol/L (3.5-5.1); SODIUM 137 mmol/L (136-145)
[2017-08-09 18:41] VITALS: BP 114/71; PULSE 85; O2SAT 100
== END 2017-08-09 18:59 | disposition home or self-care (01) ==
LOC: C.EDB 16:52 → C.EDC 18:59
DX: R07.2 Precordial pain (principal); Z80.9 Family history of malignant neoplasm, unspecified; Z84.1 Family history of disorders of kidney and ureter

== ENCOUNTER 2018-03-11 03:18 | Emergency (ER) | payer OTHER ==
[~2018-03-11] VITALS: Ht 175.3 cm; Wt 61.5 kg
[~2018-03-11 03:18] MED LIST: NAPR1TAB9 PO
[2018-03-11 03:21] VITALS: TEMP 36.6; Ht 175.3 cm; Wt 61.5 kg
[2018-03-11] MEDS ORDERED: SODIUM CHLORIDE 0.9% 1000ML 1,000 ML IV STA (03:28)
[2018-03-11] MEDS ORDERED: KETOROLAC TROMETHAMINE 30 MG/ML VIAL IV STA (03:28)
[2018-03-11] MEDS ORDERED: DiphenhydrAMINE HCL 50 MG/ML VIAL IV STA (03:28)
[2018-03-11] MEDS ORDERED: ASPI1POW10 PO (03:46)
[2018-03-11 03:50] LABS: BASO % 0.4 %; BASO ABS # 0.03 K/uL (0-0.2); EOS % 0.9 %; EOS ABS # 0.07 K/uL (0-0.5); HEMATOCRIT 40.3 % (37-47); HEMOGLOBIN 13.5 g/dL (12.0-16.0); IG# 0.03 K/uL (0.00-0.02); LYMPH % 18.6 %; MEAN CELL VOLUME 82.8 fL (80-100); MEAN CORPUSCULAR HEMOGLOBIN 27.7 pg (25-34); MEAN CORPUSCULAR HGB CONC 33.5 g/dl (32-36); MEAN PLATELET VOLUME 10.4 fL (7.4-10.4); MONO % 8.5 %; MONO ABS # 0.64 K/uL (0.11-0.59); NEUT % 71.2 %; NEUT ABS # 5.37 K/uL (1.4-6.5); PLATELET COUNT 264 K/uL (130-400); RED CELL DISTRIBUTION WIDTH CV 15.4 % (11.5-14.5); RED CELL DISTRIBUTION WIDTH SD 46.8 fL (36.4-46.3); WHITE BLOOD COUNT 7.54 K/uL (4.8-10.8)
[2018-03-11 04:10] LABS: CALCIUM 8.8 mg/dl (8.5-10.1); CREATININE 0.85 mg/dl (0.60-1.20); POTASSIUM 3.5 mmol/L (3.5-5.1)
--- NOTE | 2018-03-11 06:01 | EMERGENCY ROOM VISIT NOTE ---
History First contact with patient: 03:24 Chief Complaint: FLANK PAIN Stated Complaint: LT SIDE PAIN History of Present Illness The patient is a 27 year old female who presents to the Emergency Room with complaints of left lower suprapubic cramping pain for the past day who is a known ovarian cyst and is currently getting worked up for endometriosis. Patient had a MRI reportedly was concerning for endometriosis. Patient is to see her see SHOWER ROOM ATTENDANT next month. Patient describes the pain as cramping, ranging in severity 8 out of 10. Movement makes it worse nothing makes it better. She has tried Aleve with no improvement of symptoms. Patient denies chest pain, dyspnea, fever, chills, vomiting, diarrhea, urinary symptoms, vaginal itching or discharge. Review of Systems An 10 system review of systems was completed with positives and pertinent negatives listed in the HPI. Past Medical/Surgical History Medical Problems: (1) Hernia Ovarian cyst Family History Cancer Kidney stones Social History Smoking Status: Never Smoker Marital Status: in relationship Housing Status: lives with significant other Occupation Status: employed Current/Historical Medications Scheduled PRN Hsqlxup-Onfomasikxnxg-Nklnaily (Goodys Extra Strength), 1 DOSE PO DIRECTED PRN for Pain Naproxen (Aleve), 220 MG PO UD PRN for cramps Physical Exam Vital Signs Date Time Temp Pulse Resp B/P (MAP) Pulse Ox O2 Delivery O2 Flow Rate FiO2 03/11/18 04:58 81 18 113/73 98 Room Air 03/11/18 04:51 81 18 121/76 100 Room Air 03/11/18 03:21 36.6 96 18 135/73 98 Room Air Physical Exam VITALS: Vitals are noted on the nurse's note and reviewed by myself. Vital signs stable. GENERAL: White female, in no acute distress, nondiaphoretic, well-developed well -nourished. SKIN: The skin was without rashes, erythema, edema, or bruising. There is no tenting of the skin. Capillary reflex less than 2 seconds. HEAD: Normocephalic atraumatic. EARS: External auditory canals clear EYES: Pupils equal round and reactive to light and accommodation. Conjunctivae without injection, sclerae without icterus. Extraocular movements intact. NOSE: Patent, turbinates without inflammation or discharge. . MOUTH: Mucous membranes moist. Pharynx without erythema or exudate. Uvula midline. Airway patent. Tongue does not deviate. NECK: Supple without nuchal rigidity. No lymphadenopathy. No thyromegaly. Cervical spine is nontender. No JVD. HEART: Regular rate and rhythm without murmurs gallops or rubs. LUNGS: Clear to auscultation bilaterally without wheezes, rales or rhonchi. No retractions or accessory muscle use. ABDOMEN: Positive bowel sounds x 4. Normal tympanic percussion. Soft, tender to palpation left lower suprapubic region, without masses or organomegaly. Petty sign negative. No guarding or rebound tenderness. No CVA tenderness MUSCULOSKELETAL: No muscle atrophy, erythema, or edema noted. NEURO: Patient was alert and oriented to person place and time. Normal sensation to light and sharp touch. No focal neurological deficits. Medical Decision & Procedures Laboratory Results 03/11/18 03:40 Red Blood Count 4.87, Mean Corpuscular Volume 82.8, Mean Corpuscular Hemoglobin 27.7, Mean Corpuscular Hemoglobin Concent 33.5, Mean Platelet Volume 10.4, Neutrophils (%) (Auto) 71.2, Lymphocytes (%) (Auto) 18.6, Monocytes (%) (Auto) 8.5, Eosinophils (%) (Auto) 0.9, Basophils (%) (Auto) 0.4, Neutrophils # (Auto) 5.37, Lymphocytes # (Auto) 1.40, Monocytes # (Auto) 0.64, Eosinophils # (Auto) 0.07, Basophils # (Auto) 0.03 03/11/18 03:40 Test 03/11/18 03:30 03/11/18 03:40 Urine Color YELLOW Urine Appearance ERROR (CLEAR) Urine pH 6.0 (4.5-7.5) Urine Specific [place] 1.031 (1.000-1.030) Urine Protein NEG (NEG) Urine Glucose (UA) NEG (NEG) Urine Ketones 1+ (NEG) Urine Occult Blood 2+ (NEG) Urine Nitrite NEG (NEG) Urine Bilirubin NEG (NEG) Urine Urobilinogen NEG (NEG) Urine Leukocyte Esterase NEG (NEG) Urine WBC (Auto) 1-5 /hpf (0-5) Urine RBC (Auto) 0-4 /hpf (0-4) Urine Hyaline Casts (Auto) 1-5 /lpf (0-5) Urine Epithelial Cells (Auto) >30 /lpf (0-5) Urine Bacteria (Auto) NEG (NEG) White Blood Count 7.54 K/uL (4.8-10.8) Red Blood Count 4.87 M/uL (4.2-5.4) Hemoglobin 13.5 g/dL (12.0-16.0) Hematocrit 40.3 % (37-47) Mean Corpuscular Volume 82.8 fL (80-100) Mean Corpuscular Hemoglobin 27.7 pg (25-34) Mean Corpuscular Hemoglobin Concent 33.5 g/dl (32-36) Platelet Count 264 K/uL (130-400) Mean Platelet Volume 10.4 fL (7.4-10.4) Neutrophils (%) (Auto) 71.2 % Lymphocytes (%) (Auto) 18.6 % Monocytes (%) (Auto) 8.5 % Eosinophils (%) (Auto) 0.9 % Basophils (%) (Auto) 0.4 % Neutrophils # (Auto) 5.37 K/uL (1.4-6.5) Lymphocytes # (Auto) 1.40 K/uL (1.2-3.4) Monocytes # (Auto) 0.64 K/uL (0.11-0.59) Eosinophils # (Auto) 0.07 K/uL (0-0.5) Basophils # (Auto) 0.03 K/uL (0-0.2) RDW Standard Deviation 46.8 fL (36.4-46.3) RDW Coefficient of Variation 15.4 % (11.5-14.5) Immature Granulocyte % (Auto) 0.4 % Immature Granulocyte # (Auto) 0.03 K/uL (0.00-0.02) Anion Gap 9.0 mmol/L (3-11) Est Creatinine Clear Calc Drug Dose 95.7 ml/min Estimated GFR () 108.1 Estimated GFR (Non- 93.2 BUN/Creatinine Ratio 14.1 (10-20) Calcium Level 8.8 mg/dl (8.5-10.1) Human Chorionic Gonadotropin, Qual NEG (NEG) Medications Administered Medications (Trade) Dose Ordered Sig/Sandeep Route Start Time Stop Time Status Last Admin Dose Admin Ketorolac Tromethamine (Toradol Inj) 10 mg NOW STAT IV 03/11/18 03:28 03/11/18 03:31 DC 03/11/18 03:44 10 MG Diphenhydramine HCl (Benadryl Inj) 50 mg NOW STAT IV 03/11/18 03:28 03/11/18 03:31 DC 03/11/18 03:44 50 MG Sodium Chloride 1,000 ml @ 999 mls/hr Q1H1M STAT IV 03/11/18 03:28 03/11/18 04:28 DC 03/11/18 03:45 999 MLS/HR ED Course Prior records/ancillary studies reviewed. Triage Nursing notes reviewed. Additional history obtained from [facility] The patient's history was concerning for suprapubic abdominal pain. Differential diagnosis: Etiologies such as ovarian cyst, ovarian torsion, endometriosis, endometrioma, , appendicitis, diverticulitis, PUD, biliary pathology, UTI, pancreatitis, obstruction, mesenteric ischemia, aortic pathology, infections, inflammatory bowel disease, renal colic, as well as others were entertained. Physical examination findings: As above. ER treatment provided: Toradol, Benadryl, IV fluids On reassessment the patient felt better. Diagnostics interpreted by me: The labs revealed stable H&H. Hematuria and patient is on her menstrual cycle. Mild hyperglycemia without DKA Imaging studies: US PELVIC/ENDOVAG: COMPARISON: CT from 04/16/17. FINDINGS: A negative test is reported. The uterus is normal in size, it measures 9.4 x 5.2 x 6.3 centimeters. The endometrium is normal in thickness measuring 6 mm. Incidental note made of a small 6 x 4 x 9 mm hypoechoic nodule in the fundus may represent a small uterine leiomyoma. The right ovary measures 4.8 x 2.8 by 2 x 2 centimeters. There is a 1.8 cm cyst right adnexa with some complex free fluid noted. This may represent a small amount of blood. The left ovary measure 5.1 x 3.7 x 5.6 cm with complex collection adnexal masses that correspond to findings of the CT from 04/16/17 with multiple heterogeneous cystic lesions. Some of these may represent hemorrhagic cysts. These findings are evident on this prior CT. IMPRESSION: Persistent heterogeneous adnexal masses in the enlarged left adnexa. These appear overall to be stable but are of uncertain etiology. There are 2 small amount of free fluid in the right with what appears be a small follicular cyst measuring 1.8 cm. Radiologist: Dario Alfaro MD Exam and history seem consistent with left ovarian cyst with possible ruptured cyst. Repeat abdominal exam was benign. Patient was neurovascularly and neurologically intact. No torsion. Patient was advised to repeat a pelvic ultrasound in 6 weeks for resolution of cyst and a follow-up this week with her SHOWER ROOM ATTENDANT or here in the ER sooner for severe pain, fevers, vomiting, worsening signs or symptoms or as needed. Patient was afebrile and nontoxic. She was well-appearing. By the evaluation outlined above emergent etiologies such as appendicitis, diverticulitis, PUD, biliary pathology, UTI, pancreatitis, obstruction, mesenteric ischemia, aortic pathology, infections, inflammatory bowel disease, renal colic, as well as others were deemed relatively unlikely. The pt informed about the findings as listed above. All questions were answered and pleased with the treatment. Return instructions were outlined and the patient was discharged in stable condition. Outpatient prescription management: OxyIR, Zofran Referral: The patient was referred back to their SHOWER ROOM ATTENDANT for follow-up in 2 to 3 days for a recheck of the current condition. Case reviewed with my attending The chart was completed utilizing [employer] voice recognition software. Grammatical errors, random word insertions, pronoun errors, and incomplete sentences are an occassional consequence of this system due to software limitations, ambient noise, and hardware issues. Any formal questions or concerns about the content, text, or information contained within the body of this dictation should be directly addressed to the physician sales and marketing assistant for clarification. Medical Decision As above Medication Reconcilliation Current Medication List: was personally reviewed by me Blood Pressure Screening Patient's blood pressure: Normal blood pressure Impression Primary Impression: Left ovarian cyst Departure Information Dispostion Home / Self-Care Condition GOOD Referrals Mirta Ramirez D.O. (PCP) Patient Instructions My [facility] Additional Instructions DO NOT drive, drink alcohol, operate machinery, or perform dangerous activities today. You were given medications in the ER that can affect your ability to safely function or operate a vehicle. Recommend repeat pelvic ultrasound in 6 weeks for resolution of cyst. Rest. Stay well hydrated. No strenuous activity until symptoms resolve. Zofran 4 tablet every 6 hours as needed for nausea and vomiting. Oxycodone (OxyIR) 5mg: Take 1-2 pills every four hours for breakthrough pain. Avoid alcohol, operating machinery or dangerous equipment, working on ladders or roofs, DRIVING, or situations where being under the influence may be dangerous. It is recommended to use an nyiy-jzk-bhsbkge stool softener such as Colace, 100mg twice daily while taking this medication to avoid constipation. Ibuprofen(Motrin, Advil) may be used for fever or pain. Use 600mg every six hours as needed. Take with food. Avoid using more than 2400mg in a 24 hour period. Do not use 2400mg per day for more than three consecutive days without physician direction. Prolonged inappropriate use can lead to stomach upset or ulcers. (AND/OR) Acetaminophen(Tylenol) may be used for fever or pain. Use 1000mg every six hours as needed. Avoid using more than 3000mg in a 24 hour period. Rest and drink plenty of fluids as tolerated. Continue current medications. Return to the ER immediately for severe pain, heavy vaginal bleeding, abdominal pain, vomiting, fevers, chest pains, difficulty breathing, worsening of your condition, or as needed. Follow up with your SHOWER ROOM ATTENDANT in 2-3 days for a recheck of your current condition.
[2018-03-11 06:13] VITALS: BP 117/74; PULSE 86; O2SAT 98
[2018-03-11] MEDS ORDERED: ONDANSETRON HOME PACK 4MG OD TAB PO ONE (06:15)
[2018-03-11] MEDS ORDERED: OXYCODONE IR HOME PACK PO ONE (06:15)
--- NOTE | 2018-03-11 06:48 | DIAGNOSTIC IMAGING REPORT ---
TRANSVAG-FEMALE PELVIS HISTORY: 27 years-old Female left pelvic pain, ? cyst/torsion acute left-sided pelvic pain COMPARISON: CT abdomen and pelvis 04/16/2017, pelvic ultrasound 04/13/2017 TECHNIQUE: Multiple real-time sonographic images of the deep pelvic structures were obtained transabdominally and transvaginally assessing grayscale appearance, color and spectral flow FINDINGS: TRANSABDOMINAL: Anteflexed uterus measures 9.0 x 4.9 56.5 cm. Endometrium measures 0.7 cm. Mild free pelvic fluid. TRANSVAGINAL: Left ovary measures 5.1 x 3.7 x 5.6 cm. There is a mild degree of complex free fluid adjacent to the left adnexum. Arterial inflow to the left ovary is documented. There are multiple complex mixed echogenicity lesions about the left ovary, largest of which measures 4.7 cm, possibly correlating with the previously described 3.8 cm echogenic lesion seen on comparison study from 04/16/2017. The right ovary measures 4.8 x 2.8 x 2.2 cm. Right ovarian follicle measures up to 1.8 cm and appears mildly complex. Mild amount of complex free fluid is also noted adjacent to the right adnexum. Arterial inflow in the right ovary is confirmed. 0.6 cm hypoechoic focus is noted involving the uterine fundus which appears to be either myometrial or subserosal in location. No definite internal flow identified. IMPRESSION: 1. Multiple mixed echogenicity heterogeneous lesions about the left ovary suggest hemorrhagic ovarian cysts, largest of which measures up to 4.7 cm. A similar-appearing 3.8 cm lesion was seen within the left ovary on CT study from 04/16/2017. Follow-up pelvic ultrasound in 2 menstrual cycles or 8 weeks recommended to further evaluate. 2. No evidence of ovarian torsion. 3. 0.6 cm hypoechoic focus of the uterine fundus suggests possible leiomyoma, either myometrial or subserosal in location. 4. Mild amount of complex free fluid suggests hemoperitoneum from probable ovarian cyst rupture. The above report was generated using voice recognition software. It may contain grammatical, syntax or spelling errors. Electronically signed by: Khris Armas M.D. 03/11/2018 6:47 AM Dictated Date/Time: 03/11/2018 6:37 AM
[2018-03-12] MEDS ORDERED: IBUP-1050 PO (13:22)
[2018-03-12] MEDS ORDERED: OXYC-90 PO (13:24)
== END 2018-03-11 06:10 | disposition home or self-care (01) ==
LOC: C.EDB 03:19 → C.EDA 06:10
DX: N83.202 Unspecified ovarian cyst, left side (principal); R73.9 Hyperglycemia, unspecified; R31.9 Hematuria, unspecified

== ENCOUNTER 2018-03-12 12:36 | Emergency (ER) | payer OTHER ==
[~2018-03-12] VITALS: Ht 175.3 cm; Wt 61.5 kg
[~2018-03-12 12:36] MED LIST changes: +ASPI1POW10 PO
[2018-03-12 12:39] VITALS: TEMP 36.8; Ht 175.3 cm; Wt 61.5 kg
[2018-03-12] MEDS ORDERED: IBUP-1050 PO (13:22)
[2018-03-12] MEDS ORDERED: OXYC-90 PO (13:24)
[2018-03-12 14:18] VITALS: BP 104/73; PULSE 90; O2SAT 99
--- NOTE | 2018-03-12 16:55 | EMERGENCY ROOM VISIT NOTE ---
History Report prepared by Nena: Rayray Brunner Under the Supervision of: Dr. Kris Avalos M.D. First contact with patient: 12:55 Chief Complaint: OTHER COMPLAINT Stated Complaint: RIGHT INGUINAL HERNIA AND GAS History of Present Illness The patient is a 27 year old female who presents to the Emergency Room with complaints of a "pushed out" hernia in the right inguinal region. She states that she was diagnosed with the hernia a year ago. The patient reports that she was in the hospital yesterday for left flank pain, was found to have an ovarian cyst on the left side, and was given oxycodone. She took some oxycodone last night and afterwards felt sick and vomited. When she vomited at 9:30 PM, she states that she felt her hernia "push out" and reports that she has been holding it in since. She states that there is no current pain, but notes that it "feels weird" and feels like she has to hold it in when walking. The patient denies problems with bowel movements, bloody stools, fever, or urinary symptoms. She states that she has surgery scheduled in [place] for the end of the month. She notes that she wanted to coordinate her two surgeries with the surgeons at [place]. She reports that she also sees a general surgeon from [facility] who was not in the office today. She is here today because she was concerned about possible incarceration. Source of History: patient Onset: last night at 9:30 PM Position: other (right inguinal region) Quality: other ("pushed out" hernia) Timing: constant Associated Symptoms: + vomiting, No fevers, No melena, No hematochezia, No urinary symptoms Review of Systems See HPI for pertinent positives & negatives. A total of 10 systems reviewed and were otherwise negative. Past Medical & Surgical Medical Problems: (1) Hernia (2) Ovarian cyst Family History Cancer Kidney stones Social History Smoking Status: Never Smoker Marital Status: in relationship Housing Status: lives with significant other Occupation Status: employed Current/Historical Medications Scheduled Ibuprofen (Advil), 400 MG PO UD Scheduled PRN Oxycodone Ir (Roxicodone Ir), 5 MG PO Q4H PRN for Severe Pain Allergies Coded Allergies: Amoxicillin (Verified Allergy, Unknown, cp, 03/12/18) Oxycodone (Unverified Adverse Reaction, Severe, N/V, 03/12/18) Physical Exam Vital Signs Date Time Temp Pulse Resp B/P (MAP) Pulse Ox O2 Delivery O2 Flow Rate FiO2 03/12/18 14:18 90 18 104/73 99 Room Air 03/12/18 12:39 36.8 98 20 135/79 94 Room Air Physical Exam Constitutional: Vital signs reviewed. Eyes: Pupils are equal round reactive to light. Conjunctiva are noninjected. ENT: Pharynx is clear without erythema or exudate. Mucous membranes are moist. Neck supple without meningeal signs. Respiratory: Clear to auscultation bilaterally. Breath sounds are equal bilaterally. Cardiovascular: Regular rate and rhythm. No rubs or gallops. GI: Soft, nondistended. Mild left lower quadrant tenderness with no guarding. Bowel sounds are present. Sliding right inguinal hernia noted that is nontender and easily reducible. Musculoskeletal: No peripheral edema. No lower extremity tenderness. Integumentary: No cyanosis. Neurological: The patient is awake and alert. No focal deficits. Psychiatric: Normal affect. Medical Decision & Procedures ED Course 1257: The patient was evaluated in room B11. A complete history and physical exam was performed. 1321: I spoke with Max Campbell PA-C - [facility]. He states that he will call the office, and they will try to get her in for an appointment soon. 1410: I spoke with the field case manager, who states that they will call the patient on Thursday. The patient was informed of this. 1416: I instructed the patient to follow up with her surgeon. I discussed lisa's findings with her. She verbalized agreement of the treatment plan. She was discharged home. Medical Decision This is a 27-year-old female presents with pain in right lower quadrant. Differential diagnosis includes inguinal hernia, strain, incarceration, strangulation. I did perform a limited focused review of portions of the patient's old chart on the electronic medical record. The patient was in the hospital yesterday for left flank pain. She had an ultrasound of pelvis that showed left ovarian cyst. Discharged with oxycodone. I did evaluate the patient as noted above. On examination the patient has a right inguinal hernia which is easily reducible and nontender. There is no evidence of incarceration or strangulation. She does have some left lower abdominal pain and had a workup for this just recently as described above. I did talk to the surgical service and the field case manager spoke to the office and they would try to get her in as soon as possible for repair of the hernia. The patient was happy with this plan and discharged in good condition. She was given return instructions as outlined below. Medication Reconcilliation Current Medication List: was personally reviewed by me Blood Pressure Screening Patient's blood pressure: Elevated blood pressure Blood pressure disposition: Referred to PCP Consults Time Called: 141 Consulting Physician: Max Campbell PA-C - [facility] Returned Call: 1416 I spoke with Max Campbell PA-C - [facility]. He states that he will call the office, and they will try to get her in for an appointment soon. Impression Primary Impression: Right inguinal hernia Scribe Attestation The scribe's documentation has been prepared under my direct and personally reviewed by me in its entirety. I confirm that the note above accurately reflects all work, treatment, procedures, and medical decision making performed by me. Departure Information Dispostion Home / Self-Care Referrals Mirta Ramirez D.O. (PCP) Forms HOME CARE DOCUMENTATION FORM, IMPORTANT VISIT INFORMATION, WORK / SCHOOL INSTRUCTIONS Patient Instructions My [facility] [employer] Additional Instructions You have been examined and treated today on an emergency basis only. This is not a substitute for, or an effort to provide, complete comprehensive medical care. It is impossible to recognize and treat all injuries or illnesses in a single emergency department visit. It is therefore important that you follow up closely with Dr. Ortiz of general surgery or your own surgeon. Call the office on Thursday if they do not call you first. Return for worsening symptoms or if you develop fever, vomiting, rectal bleeding, inability to push back your hernia, significant pain to your hernia or any other concerning symptoms.
== END 2018-03-12 14:26 | disposition home or self-care (01) ==
LOC: C.EDB 12:37
DX: K40.90 Unilateral inguinal hernia, without obstruction or gangrene, not specified as recurrent (principal); Z88.1 Allergy status to other antibiotic agents; Z88.5 Allergy status to narcotic agent

== ENCOUNTER 2024-01-18 19:10 | Observation (INO) ==
[2024-01-18 19:48] LABS: Appearance Urine Turbid (Clear); Bacteria Urine Automated None Seen (None Seen); Bilirubin Urine Negative (Negative); Blood Urine Trace (Negative); Cast Urine Automated 0-2 /lpf (0-2); Color Urine Yellow; Epithelial Cell Urine Auto 0-2 /hpf (0-2); Glucose Urine UA Negative (Negative); Ketones Urine Negative (Negative); Leukocyte Esterase Urine Negative (Negative); Nitrite Urine Negative (Negative); Protein Urine Trace (Negative); RBC Urine Automated 0-2 /hpf (0-2); Specific Gravity Urine 1.017 (1.000-1.030); Urobilinogen Urine Negative (Negative); WBC Urine Automated 0-5 /hpf (0-5); pH Urine >= 9.0 (4.5-7.5)
[2024-01-18 19:50] LABS: Basophils # (auto) 0.04 K/uL (0.00-0.20); Basophils % (auto) 0.3 %; Eosinophils # (auto) 0.07 K/uL (0.00-0.50); Eosinophils % (auto) 0.5 %; Hematocrit (blood only) 33.9 % (37.0-47.0); Hemoglobin 11.8 g/dl (12.0-16.0); Immature Granulocytes # (auto) 0.06 K/uL (0.01-0.20); Immature Granulocytes % (auto) 0.4 %; Lymphocytes # (auto) 1.88 K/uL (1.20-3.40); Lymphocytes % (auto) 13.7 %; Mean Corpuscular Hemoglobin 30.6 pg (25.0-34.0); Mean Corpuscular Hgb Conc 34.8 g/dL (32.0-36.0); Mean Corpuscular Volume 87.8 fL (80.0-100.0); Mean Platelet Volume 10.2 fL (9.4-12.4); Monocytes # (auto) 1.13 K/uL (0.11-0.59); Monocytes % (auto) 8.3 %; Neutrophils # (auto) 10.51 K/uL (1.40-6.50); Neutrophils % (auto) 76.8 %; Platelet Count 248 K/uL (130-400); RDW Coefficient of Variation 12.7 % (11.5-14.5); RDW Standard Deviation 40.4 fL (36.4-46.3); Red Blood Count 3.86 M/uL (4.20-5.40); White Blood Count 13.69 K/ul (4.8-10.8)
--- NOTE | 2024-01-18 20:04 | Emergency Department Note ---
Impression & Plan Left lower quadrant abdominal pain, Spontaneous , Leukocytosis ED Provider Note NAME: TANYA LEONARD AGE: 33 SEX: Female INFORMANT: Patient ED PROVIDER(S): Brigido Friedman MD CHIEF COMPLAINT: Abdominal pain PLAN: Disposition: Admitted Outpatient prescription management: none Referral: None MEDICAL DECISION MAKING: Patient presented because of abdominal pain. Recent spontaneous AB. She was treated with several doses of IV Dilaudid. She was also given Zofran and Toradol. She would have some temporary relief but then pain would would come back. Ultrasound imaging was performed. She had thickened endometrium. No other acute pathology was noted. The patient had an hCG of 1600. She notes that the peak hCG was 91,000. Given the pain, leukocytosis, and medication requirements I did consult with Dr. Ramirez of [facility]. After discussion of the ultrasound and patient's history we elected to perform CT imaging. Radiology question about possible developing obstruction however she has no upper abdominal pain or nausea or vomiting. Pain is all lower. No significant pelvic pathology was noted. Patient had a questionable thickening of the bladder wall however her urinalysis is negative. Dr. Ramirez did evaluate the patient in the ER. She too was concerned about the patient's level of discomfort. In light of the white count we did discuss initiation of antibiotic. Patient was initially reluctant about staying versus going home. After reassessment the patient does agree to admission due to the pain. [facility] will manage antibiotic choices. Did discuss them with hospital pharmacist. I refer you to the EMR for further details. Care/management discussed with: manager assisted living Level of care consideration(s): After review of the information above and other included data, I feel the patient requires escalation of care to admission Triage Nursing notes: reviewed and agree them. Vital Signs: reviewed and remarkable for no significant abnormalities Additional History obtained from: none Chronic Medical/Social Conditions affecting care: none Prior/ Outside/ External records reviewed: none Differential Diagnosis: Etiologies such as threatened AB, miscarriage, ectopic , dysfunction uterine bleeding, bleeding dyscrasia, trauma, infection, as well as others were entertained. Diagnostics, independently interpreted by me: ECG: none Cardiac Monitoring: Cardiac monitoring ordered by me: The patient was placed on continuous cardiac monitoring and observed. It revealed a normal sinus rhythm at 75 beats per minute without ectopy or evidence of dysrhythmia. Medical decision rules: none Imaging studies: Ultrasound imaging reveals a thickened endometrium. No gestational sac. I refer you to the EMR for further details. HPI: 33 year old Female arrives for evaluation of abdominal pain. This started last night and is worsening. The patient also notes the following associated symptoms, light vaginal bleeding. Pain in LLQ. Had spontaneous ab 3 days ago. The patient has tried ibuprofen relieving factors. Current pain is rated as 8/10. Patient states that she is about 10 weeks . Her peak hCG levels about 90,000. Today at the clinic it was 1500. Patient states ultrasound was unremarkable today. She was advised just to use ibuprofen and continue conservative management. Pt denies LOC, headache, fevers, chills, diaphoresis, visual changes, neck pain, chest pain, breathing difficulties, nausea, vomiting, abdominal pain, back pain, melena, hematochezia, urinary symptoms, numbness, weakness, lymphadenopathy, rash, or other complaints. . PAST MEDICAL HISTORY: See Below, penicillin allergy PAST SURGICAL HISTORY: See Below, SOCIAL HISTORY: See Below, non-smoker HOME MEDICATIONS: See Below ALLERGIES: See Below VITALS: See Below PHYSICAL EXAMINATION: GENERAL: Awake, alert, w uncomfortable ell-appearing, in no distress HENT: Normocephalic, atraumatic. Oropharynx unremarkable. EYES: Normal conjunctiva. Sclera non-icteric. NECK: Inspection normal. Non-tender. Supple. No nuchal rigidity. FROM. No masses. RESPIRATORY: Clear to auscultation. No wheezes. No rales. Normal respiratory effort. CARDIAC: Borderline tachycardic rate. Normal rhythm. No murmurs. No rubs. Extremities warm and well perfused. Pulses equal. No JVD. GI: Soft, non-distended. Left lower quadrant and suprapubic tenderness to palpation. No rebound or guarding. No masses. RECTAL: Deferred. MUSCULOSKELETAL: Atraumatic. Chest examination reveals no tenderness. The back is symmetrical on inspection without obvious abnormality. There is no CVA tenderness to palpation. No joint edema. LOWER EXTREMITIES: Calves are equal size bilaterally and non-tender. No edema. No discoloration. NEURO: Normal sensorium. No sensory or motor deficits noted. SKIN: No rash or jaundice noted. PROCEDURES: none CRITICAL CARE: none OBSERVATION NOTE: none Past Med/Surg History Problem List (Updated 01/19/24 @ 18:23 by Brigido Friedman MD) Leukocytosis (Acute) Spontaneous (Acute) Left lower quadrant abdominal pain (Acute) Uterine fibroids affecting History of endometriosis History of infertility Incomplete spontaneous Pelvic pain Hernia (Chronic) Left lower quadrant pain (Acute) Ovarian cyst Colitis (Acute) Lower abdominal pain (Acute) Hemorrhagic ovarian cyst (Acute) Right inguinal hernia (Acute) Social History Smoking Status: Never smoker Second Hand Exposure: No; Do You Dip or Chew Tobacco: No; Tobacco Cessation Education Requested by Patient: No Hx Alcohol Use: No Hx Substance Use: No Preferred Language: Turkish Communication Ability: Effective [employer] Required: No Beliefs That Will Affect Care: None Current Living Situation: Spouse Current Living Situation Comment: Lives with and Cat Bear Other Information That Helps Us Care for You: No Feels Safe at Home: Yes Safety Concerns: Feels Safe At This Time Allergies Allergies Allergy/AdvReac Type Severity Reaction Status Date / Time amoxicillin Allergy Unknown cp Verified 01/18/24 20:01 oxycodone AdvReac Severe N/V Unverified 01/18/24 20:01 Home Meds Home Medications Medication Instructions Recorded Confirmed levothyroxine 25 mcg tablet 25 mcg PO QDB 01/18/24 01/18/24 (Synthroid) Previous Rx's Medication Instructions Recorded clindamycin HCl 150 mg capsule 150 mg PO Q8H 7 days #21 caps 01/19/24 (Cleocin HCl) hydromorphone 2 mg tablet 2 mg PO Q6H PRN pain #30 tabs 01/19/24 (Dilaudid) hydromorphone 4 mg tablet 4 mg PO Q6H #20 tabs 01/19/24 (Dilaudid) Results & Data (ED) Vital Signs Vital Signs - 24 hr 01/18/24 19:12 01/18/24 20:17 01/18/24 20:17 Temperature 36.8 C Temperature Source Temporal Artery Scan Pulse Rate 101 H 72 Pulse Rate [Apical] 73 Pulse Rate from SpO2 Sensor Respiratory Rate 19 20 Respiratory Effort / Characteristics Non-Labored Spontaneous Non-Labored Spontaneous Respiratory Depth Normal Normal Respiratory Pattern Regular Blood Pressure 171/99 H Blood Pressure [Right Arm] 113/82 Blood Pressure Mean 123 Blood Pressure Mean [Right Arm] 92 Blood Pressure Position [Right Arm] Semi-fowlers Pulse Oximetry 99 100 Oxygen Delivery Method Room Air Room Air Sepsis Recent Fever Within 48 Hours No Sepsis New/Unexplained Change in Mental Status N/A Sepsis Action Taken by Nursing No Action Required 01/18/24 23:00 01/19/24 00:11 01/19/24 00:30 Temperature Temperature Source Pulse Rate 69 66 67 Pulse Rate [Apical] Pulse Rate from SpO2 Sensor 70 68 Respiratory Rate 18 16 Respiratory Effort / Characteristics Respiratory Depth Respiratory Pattern Blood Pressure 122/71 123/71 Blood Pressure [Right Arm] Blood Pressure Mean 88 88 Blood Pressure Mean [Right Arm] Blood Pressure Position [Right Arm] Pulse Oximetry 100 97 Oxygen Delivery Method Room Air Room Air Sepsis Recent Fever Within 48 Hours Sepsis New/Unexplained Change in Mental Status Sepsis Action Taken by Nursing 01/19/24 01:30 01/19/24 02:00 01/19/24 03:00 Temperature Temperature Source Pulse Rate 84 70 68 Pulse Rate [Apical] Pulse Rate from SpO2 Sensor 84 70 68 Respiratory Rate 19 17 13 Respiratory Effort / Characteristics Respiratory Depth Respiratory Pattern Blood Pressure 115/69 102/71 Blood Pressure [Right Arm] Blood Pressure Mean 84 81 Blood Pressure Mean [Right Arm] Blood Pressure Position [Right Arm] Pulse Oximetry 96 95 97 Oxygen Delivery Method Room Air Room Air Room Air Sepsis Recent Fever Within 48 Hours Sepsis New/Unexplained Change in Mental Status Sepsis Action Taken by Nursing Laboratory Data 01/19/24 03:57 01/18/24 19:30 Lab Results 01/18/24 01/18/24 Range/Units 19:30 19:33 WBC 13.69 H (4.8-10.8) K/ul RBC 3.86 L (4.20-5.40) M/uL Hgb 11.8 L (12.0-16.0) g/dl Hct 33.9 L (37.0-47.0) % MCV 87.8 (80.0-100.0) fL MCH 30.6 (25.0-34.0) pg MCHC 34.8 (32.0-36.0) g/dL RDW Std Deviation 40.4 (36.4-46.3) fL RDW Coeff of Micheline 12.7 (11.5-14.5) % Plt Count 248 (130-400) K/uL MPV 10.2 (9.4-12.4) fL Immature Gran % (Auto) 0.4 % Neut % (Auto) 76.8 % Lymph % (Auto) 13.7 % Mellette % (Auto) 8.3 % Eos % (Auto) 0.5 % Baso % (Auto) 0.3 % Neut # (Auto) 10.51 H (1.40-6.50) K/uL Lymph # (Auto) 1.88 (1.20-3.40) K/uL Mellette # (Auto) 1.13 H (0.11-0.59) K/uL Eos # (Auto) 0.07 (0.00-0.50) K/uL Baso # (Auto) 0.04 (0.00-0.20) K/uL Immature Gran # (Auto) 0.06 (0.01-0.20) K/uL Sodium 138 (136-145) mmol/L Potassium 3.6 (3.5-5.1) mmol/L Chloride 103 (98-107) mmol/L Carbon Dioxide 25 (21-32) mmol/L Anion Gap 10 (3-11) BUN 12 (6-23) mg/dl Creatinine 0.84 (0.6-1.2) mg/dl Est Cr Clr Drug Dosing 95.2 ml/min Est GFR ( Amer) 105.1 ml/min Est GFR (Non-Af Amer) 90.7 ml/min BUN/Creatinine Ratio 14.3 (10-20) Glucose 121 H (70-99(Fasting)) mg/dl Calcium 9.9 (8.6-10.3) mg/dl Total Bilirubin 0.3 (0.2-1.0) mg/dl AST 14 (13-39) U/L ALT 14 (7-52) U/L Alkaline Phosphatase 70 (34-104) U/L Total Protein 8.1 (6.0-8.3) gm/dl Albumin 4.7 (3.4-5.0) gm/dl Globulin 3.4 (2.5-4.0) gm/dl Albumin/Globulin Ratio 1.4 (0.9-2) HCG, Quant 1649 mIU/ml Urine Color Yellow Urine Appearance Turbid A (Clear) Urine pH >= 9.0 H (4.5-7.5) Ur Specific [place] 1.017 (1.000-1.030) Urine Protein Trace H (Negative) Urine Glucose (UA) Negative (Negative) Urine Ketones Negative (Negative) Urine Blood Trace H (Negative) Urine Nitrite Negative (Negative) Urine Bilirubin Negative (Negative) Urine Urobilinogen Negative (Negative) Ur Leukocyte Esterase Negative (Negative) Urine WBC (Auto) 0-5 (0-5) /hpf Urine RBC (Auto) 0-2 (0-2) /hpf U Hyaline Cast (Auto) 0-2 (0-2) /lpf U Epithel Cells (Auto) 0-2 (0-2) /hpf Urine Bacteria (Auto) None Seen (None Seen) Administered Medications Discontinued Medications Hydromorphone HCl (Hydromorphone Inj 0.5 Mg/0.5 Ml Syr) 0.25 mg IV Q15M PRN PRN Reason: Pain Stop: 02/01/24 20:04 Last Admin: 01/18/24 20:31 Dose: 0.25 mg Documented By: Admin: 01/18/24 20:11 Dose: 0.25 mg Documented By: Hydromorphone HCl (Hydromorphone Inj 0.5 Mg/0.5 Ml Syr) 0.5 mg IV Q15M PRN PRN Reason: Pain Stop: 02/01/24 21:55 Last Admin: 01/19/24 01:49 Dose: 0.5 mg Documented By: Admin: 01/18/24 23:44 Dose: 0.5 mg Documented By: Admin: 01/18/24 22:00 Dose: 0.5 mg Documented By: Hydromorphone HCl (Hydromorphone Inj 1 Mg/Ml Syringe) 1 mg IV Q4 PRN PRN Reason: Pain Stop: 02/02/24 03:03 Last Admin: 01/19/24 08:16 Dose: 1 mg Documented By: Admin: 01/19/24 04:12 Dose: 1 mg Documented By: DELROY Lactated Ringer's (Lr) 1,000 mls @ 125 mls/hr IV .Q8H [facility] Stop: 02/18/24 03:14 Last Admin: 01/19/24 04:07 Dose: 125 mls/hr Documented By: DELROY Acetaminophen (Ofirmev) 1,000 mg in 100 mls @ 400 mls/hr IV Q8H PRN PRN Reason: Pain Stop: 01/22/24 03:03 Last Infusion: 01/19/24 07:50 Dose: Infused Documented By: Admin: 01/19/24 07:35 Dose: 400 mls/hr Documented By: ALICE Gentamicin Sulfate 100 mg/ (Dextrose) 102.5 mls @ 100 mls/hr IV Q8H [facility] Stop: 01/29/24 03:59 Last Infusion: 01/19/24 13:15 Dose: Infused Documented By: Admin: 01/19/24 12:11 Dose: 100 mls/hr Documented By: Infusion: 01/19/24 06:37 Dose: Infused Documented By: Admin: 01/19/24 05:35 Dose: 100 mls/hr Documented By: NANNETTE Clindamycin Phosphate (Cleocin/D5w) 900 mg in 50 mls @ 100 mls/hr IV Q8H [facility] Stop: 01/29/24 03:29 Last Infusion: 01/19/24 12:05 Dose: Infused Documented By: Admin: 01/19/24 11:34 Dose: 100 mls/hr Documented By: Infusion: 01/19/24 04:39 Dose: Infused Documented By: Admin: 01/19/24 04:08 Dose: 100 mls/hr Documented By: DELROY Ketorolac Tromethamine (Ketorolac Tromethamine 15 Mg/Ml Vial) 10 mg IV NOW ONE Stop: 01/18/24 21:58 Last Admin: 01/18/24 21:59 Dose: 10 mg Documented By: Ketorolac Tromethamine (Ketorolac Tromethamine 15 Mg/Ml Vial) 15 mg IV Q6H PRN PRN Reason: Pain Stop: 01/24/24 03:03 Last Admin: 01/19/24 12:55 Dose: 15 mg Documented By: Admin: 01/19/24 05:34 Dose: 15 mg Documented By: NANNETTE Levothyroxine Sodium (Levothyroxine Sodium 25 Mcg Tablet) 25 mcg PO DAILYBB [facility] Stop: 02/18/24 07:29 Last Admin: 01/19/24 08:12 Dose: Not Given Documented By: ALICE Ondansetron HCl (Ondansetron Inj 2 Mg/Ml 2 Ml Vial) 4 mg IV NOW STA Stop: 01/18/24 20:06 Last Admin: 01/18/24 20:11 Dose: 4 mg Documented By: AB Imaging Data Radiologist's Impression: Ultrasound 01/18/24 20:08 US OB <= 14 weeks fetus CLINICAL HISTORY: LLQ pain, recent AB Technique: Real-time sonographic images of the pelvic contents were obtained with transabdominal and transvaginal technique. COMPARISON: Comparison is made to pelvic ultrasound 08/14/2023 FINDINGS: Exam is limited by patient tolerance. The uterus measures 10.7 x 6.4 x 8.1 mm. Multiple fibroids are seen, measuring up to 4.0 x 5.1 x 4.0 cm and appearing to contact the endometrial surface. Endometrial stripe measures 2.1 cm, it is thickened and somewhat heterogeneous however no definite intrauterine is seen. Nabothian cysts are noted in the cervix. Right ovary measures 3.7 x 1.4 x 2.4 cm. Left ovary measures 3.2 x 3.3 x 2.5 cm. Blood flow is seen bilaterally. IMPRESSION: No gestational sac is visualized. Multiple fibroids are seen. Continued hCG trend and ultrasound follow-up is recommended to exclude ectopic . ACT 112: Negative or not required by law. Electronically signed by: Kirt Mariscal M.D. 01/18/2024 10:00 PM Transvaginal US 01/18/24 20:08 US OB <= 14 weeks fetus CLINICAL HISTORY: LLQ pain, recent AB Technique: Real-time sonographic images of the pelvic contents were obtained with transabdominal and transvaginal technique. COMPARISON: Comparison is made to pelvic ultrasound 08/14/2023 FINDINGS: Exam is limited by patient tolerance. The uterus measures 10.7 x 6.4 x 8.1 mm. Multiple fibroids are seen, measuring up to 4.0 x 5.1 x 4.0 cm and appearing to contact the endometrial surface. Endometrial stripe measures 2.1 cm, it is thickened and somewhat heterogeneous however no definite intrauterine is seen. Nabothian cysts are noted in the cervix. Right ovary measures 3.7 x 1.4 x 2.4 cm. Left ovary measures 3.2 x 3.3 x 2.5 cm. Blood flow is seen bilaterally. IMPRESSION: No gestational sac is visualized. Multiple fibroids are seen. Continued hCG trend and ultrasound follow-up is recommended to exclude ectopic . ACT 112: Negative or not required by law. Electronically signed by: Kirt Mariscal M.D. 01/18/2024 10:00 PM Discharge Plan Visit Data Chief Complaint: Abdominal Pain Stated Complaint: LOWER ABD PAIN, IN SEVERE PAIN ED Provider: Brigido Friedman Discharge Problem: Left lower quadrant abdominal pain, Spontaneous , Leukocytosis Patient Disposition: Admitted As Inpatient Discharge Instructions Interventions: ED Discharge Assessment Last Done: 01/19/24 05:10
[2024-01-18 20:05] LABS: Albumin Globulin Ratio 1.4 (0.9-2); Albumin Level 4.7 gm/dl (3.4-5.0); BUN Creatinine Ratio 14.3 (10-20); Bilirubin,Total 0.3 mg/dl (0.2-1.0); Calcium 9.9 mg/dl (8.6-10.3); Creatinine Clr Calc Pharmacy 95.2 ml/min; Est GFR (African American) 105.1 ml/min; Est GFR (Non-African American) 90.7 ml/min; Globulin 3.4 gm/dl (2.5-4.0); Potassium 3.6 mmol/L (3.5-5.1); Total Protein 8.1 gm/dl (6.0-8.3)
[2024-01-18] MEDS: ONDANSETRON INJ 2 MG/ML 2 ML VIAL IV STA (20:11)
[2024-01-18] MEDS: HYDROmorphone INJ 0.5 MG/0.5 ML SYR IV PRN ×2 (20:11→22:00)
[2024-01-18] MEDS: KETOROLAC TROMETHAMINE 15 MG/ML VIAL IV ONE (21:59)
--- NOTE | 2024-01-18 22:02 | Ultrasound Report ---
US OB <= 14 weeks fetus CLINICAL HISTORY: LLQ pain, recent AB Technique: Real-time sonographic images of the pelvic contents were obtained with transabdominal and transvaginal technique. COMPARISON: Comparison is made to pelvic ultrasound 08/14/2023 FINDINGS: Exam is limited by patient tolerance. The uterus measures 10.7 x 6.4 x 8.1 mm. Multiple fibroids are seen, measuring up to 4.0 x 5.1 x 4.0 cm and appearing to contact the endometrial surface. Endometrial stripe measures 2.1 cm, it is thicke kamla and somewhat heterogeneous however no definite intrauterine is seen. Nabothian cysts ar e noted in the cervix. Right ovary measures 3.7 x 1.4 x 2.4 cm. Left ovary measures 3.2 x 3.3 x 2.5 cm. Blood flow is seen b ilaterally. IMPRESSION: No gestational sac is visualized. Multiple fibroids are seen. Continued hCG trend and ultrasound foll ow-up is recommended to exclude ectopic . ACT 112: Negative or not required by law. Electronically signed by: Kirt Mariscal M.D. 01/18/2024 10:00 PM
--- NOTE | 2024-01-19 00:59 | CT Scan Report ---
Exam(s): CT ABDOMEN + PELVIS Without Contrast EXAM: CT Abdomen and Pelvis Without Intravenous Contrast CLINICAL HISTORY: Pain. TECHNIQUE: Axial computed tomography images of the abdomen and pelvis without intravenous contrast. CTDI is 11 mGy and DLP is 576 mGy-cm. Automated exposure control was utilized for the study. A dose lowering technique was utilized adhering to the principles of ALARA. COMPARISON: CT abdomen and pelvis 04/16/2017 FINDINGS: Lung bases: Unremarkable. No mass. No consolidation. ABDOMEN: Liver: Unremarkable. Gallbladder and bile ducts: Unremarkable. No calcified stones. No ductal dilation. Pancreas: Unremarkable. No ductal dilation. Spleen: Unremarkable. No splenomegaly. Adrenals: Unremarkable. No mass. Kidneys and ureters: Unremarkable. No obstructing stones. No hydronephrosis. Stomach and bowel: No mucosal thickening. Focally distended duodenum. PELVIS: Appendix: No findings to suggest acute appendicitis. Bladder: Thickening of the bladder wall is concerning for cystitis. No stones. Reproductive: The uterus is enlarged. ABDOMEN and PELVIS: Intraperitoneal space: Unremarkable. No free air. No significant fluid collection. Bones/joints: No acute fracture. No dislocation. Soft tissues: Unremarkable. Vasculature: Unremarkable. No abdominal aortic aneurysm. Lymph nodes: Unremarkable. No enlarged lymph nodes. IMPRESSION: 1. Thickening of the bladder wall is concerning for cystitis. 2. Focally distended duodenum. Cannot exclude early obstruction. 3. The uterus is enlarged. This is indeterminate, clinical correlation is recommended. Electronically signed by: Yoli Arguello MD 01/19/24 00:58 AM
--- NOTE | 2024-01-19 02:00 | OB/GYN Consultation ---
Date of Consultation January 19, 2024 Assessment & Plan (1) Pelvic pain: patient is a 33-year-old G1, P0 with recent spontaneous , on January 14, presenting with increased pain, requiring frequent IV pain medications, thickened endometrium suggesting incomplete spontaneous , enlarged fibroid uterus, history of endometriosis, Vital signs stable afebrile, H&H is stable, Beta-hCG has been decreasing, no records available Slight elevated white count, We discussed the findings and possible reasons of her pelvic pain including encompassed about an , endometritis, fibroid degeneration, endometriosis, chronic constipation, cystitis, I recommended observation in the hospital with IV antibiotics and pain medications, consider Cytotec at some point to help with complete spontaneous patient her partner does not want to do anything with spontaneous they declined medication/Cytotec as well as D&C, They are considering going home with pain medications and prescriptions and follow-up with her own physician I discussed the case and recommendations with ER physician, Who will let me know what patient and her partner will decide to do. All questions were answered. (2) Incomplete spontaneous : (3) History of infertility: (4) History of endometriosis: (5) Uterine fibroids affecting : History of Present Illness Reason for Consultation: Pelvic pain History of Present Illness Patient is a 33-year-old with history of infertility, endometriosis, recent spontaneous progress. She has been going to inferential the clinic in the [place], [place]. She was about to get infertility workup with [facility] and she found that she was spontaneously. her beta-hCG was over 90,000 about 3 weeks ago and she h ad an empty gestational sac with no embryo by pelvic ultrasound. We do not have any records of those available. She woke up with heavy vaginal bleeding and pain on Thursday morning which was January 14. She passed clots and tissue and pain resolved. She had no pain until January 16 evening when she could not sleep. She went to the same clinic yesterday and had blood work which was around 1500. She was recommended to take Motrin and Tylenol as needed. When she came home yesterday she could not stand the pain and she came to ER. Her bleeding has been minimal but pain has been severe. She received 0.25 mg of hydromorphone which did help much and then she got 0.5 of the same medication as well as IV Toradol. She feels better now but she still has the pain, which gets intense with contractions/cramps. She reports painful urination no color change. She also has history of constipation, she had painful bowel movements on January 14 but it was normal yesterday. She denies fever, chills, nausea vomiting. She denies history of any other pregnancies, no history of STDs. She has been with same partner for 15 years. I was called by ER attending due to amount of pain she was having and requiring IV pain medications. Ultrasound today shows no IUP with heterogeneous thickened endometrium about 2.2 cm, ovaries normal with normal blood flow, no free fluid in the pelvis. She has enlarged fibroid uterus. Allergies Allergy/AdvReac Type Severity Reaction Status Date / Time amoxicillin Allergy Unknown cp Verified 01/18/24 20:01 oxycodone AdvReac Severe N/V Unverified 01/18/24 20:01 Home Medications Medication Instructions Recorded Confirmed Type levothyroxine 25 mcg tablet 25 mcg PO QDB 01/18/24 01/18/24 History (Synthroid) Patient History Social History Smoking Status: Never smoker Preferred Language: Turkish Feels Safe at Home: Yes Review of Systems Constitutional: as per Subjective / HPI Physical Exam Constitutional: WD/WN, vitals as above well developed and + in distress ( she seems to be in mild distress, tired) Gastrointestinal (Abdomen): normal bowel sounds, soft, nontender, no hepatosplenomegaly ( suprapubic tenderness, no rebound) Genitourinary: normal external appearance Speculum/Bimanual Exam: normal appearance of the vagina ( small amount of dark blood ), normal appearance of the cervix ( closed, minimal bleeding), + cervical tenderness ( present), + abnormal uterine size ( enlarged), + cervical motion tenderness, + uterus boggy and + uterus tender Results & Data Vital Signs (Past 12 Hours) Vital Signs Temp Pulse Pulse Resp BP BP Pulse Ox 01/19/24 01:30 84 19 96 01/19/24 00:30 67 16 123/71 97 01/19/24 00:11 66 01/18/24 23:00 69 18 122/71 100 01/18/24 20:17 72 01/18/24 20:17 73 20 113/82 100 06/10/24 19:12 36.8 C 101 H 19 171/99 H 99 O2 Del Method 01/19/24 01:30 Room Air 01/19/24 00:30 Room Air 01/19/24 00:11 01/18/24 23:00 Room Air 01/18/24 20:17 01/18/24 20:17 Room Air 01/18/24 19:12 Room Air Laboratory Results 01/18/24 01/18/24 Range/Units 19:33 19:30 WBC 13.69 H (4.8-10.8) K/ul RBC 3.86 L (4.20-5.40) M/uL Hgb 11.8 L (12.0-16.0) g/dl Hct 33.9 L (37.0-47.0) % MCV 87.8 (80.0-100.0) fL MCH 30.6 (25.0-34.0) pg MCHC 34.8 (32.0-36.0) g/dL RDW Std Deviation 40.4 (36.4-46.3) fL RDW Coeff of Micheline 12.7 (11.5-14.5) % Plt Count 248 (130-400) K/uL MPV 10.2 (9.4-12.4) fL Immature Gran % (Auto) 0.4 % Neut % (Auto) 76.8 % Lymph % (Auto) 13.7 % [place] % (Auto) 8.3 % Eos % (Auto) 0.5 % Baso % (Auto) 0.3 % Neut # (Auto) 10.51 H (1.40-6.50) K/uL Lymph # (Auto) 1.88 (1.20-3.40) K/uL [place] # (Auto) 1.13 H (0.11-0.59) K/uL Eos # (Auto) 0.07 (0.00-0.50) K/uL Baso # (Auto) 0.04 (0.00-0.20) K/uL Immature Gran # (Auto) 0.06 (0.01-0.20) K/uL Sodium 138 (136-145) mmol/L Potassium 3.6 (3.5-5.1) mmol/L Chloride 103 (98-107) mmol/L Carbon Dioxide 25 (21-32) mmol/L Anion Gap 10 (3-11) BUN 12 (6-23) mg/dl Creatinine 0.84 (0.6-1.2) mg/dl Est Cr Clr Drug Dosing 95.2 ml/min Est GFR ( Amer) 105.1 ml/min Est GFR (Non-Af Amer) 90.7 ml/min BUN/Creatinine Ratio 14.3 (10-20) Glucose 121 H (70-99(Fasting)) mg/dl Calcium 9.9 (8.6-10.3) mg/dl Total Bilirubin 0.3 (0.2-1.0) mg/dl AST 14 (13-39) U/L ALT 14 (7-52) U/L Alkaline Phosphatase 70 (34-104) U/L Total Protein 8.1 (6.0-8.3) gm/dl Albumin 4.7 (3.4-5.0) gm/dl Globulin 3.4 (2.5-4.0) gm/dl Albumin/Globulin Ratio 1.4 (0.9-2) HCG, Quant 1649 mIU/ml Urine Color Yellow Urine Appearance Turbid A (Clear) Urine pH >= 9.0 H (4.5-7.5) Ur Specific Pelican 1.017 (1.000-1.030) Urine Protein Trace H (Negative) Urine Glucose (UA) Negative (Negative) Urine Ketones Negative (Negative) Urine Blood Trace H (Negative) Urine Nitrite Negative (Negative) Urine Bilirubin Negative (Negative) Urine Urobilinogen Negative (Negative) Ur Leukocyte Esterase Negative (Negative) Urine WBC (Auto) 0-5 (0-5) /hpf Urine RBC (Auto) 0-2 (0-2) /hpf U Hyaline Cast (Auto) 0-2 (0-2) /lpf U Epithel Cells (Auto) 0-2 (0-2) /hpf Urine Bacteria (Auto) None Seen (None Seen) Diagnostic Findings PELVIC US: The uterus measures 10.7 x 6.4 x 8.1 mm. Multiple fibroids are seen, measuring up to 4.0 x 5.1 x 4.0 cm and appearing to contact the endometrial surface. Endometrial stripe measures 2.1 cm, it is thickened and somewhat heterogeneous however no definite intrauterine is seen. Nabothian cysts are noted in the cervix. Right ovary measures 3.7 x 1.4 x 2.4 cm. Left ovary measures 3.2 x 3.3 x 2.5 cm. Blood flow is seen bilaterally. IMPRESSION: No gestational sac is visualized. Multiple fibroids are seen. Continued hCG trend and ultrasound follow-up is recommended to exclude ectopic . CT OF ABD/ PELVIS; Exam(s): CT ABDOMEN + PELVIS Without Contrast EXAM: CT Abdomen and Pelvis Without Intravenous Contrast CLINICAL HISTORY: Pain. TECHNIQUE: Axial computed tomography images of the abdomen and pelvis without intravenous contrast. CTDI is 11 mGy and DLP is 576 mGy-cm. Automated exposure control was utilized for the study. A dose lowering technique was utilized adhering to the principles of ALARA. COMPARISON: CT abdomen and pelvis 04/16/2017 FINDINGS: Lung bases: Unremarkable. No mass. No consolidation. ABDOMEN: Liver: Unremarkable. Gallbladder and bile ducts: Unremarkable. No calcified stones. No ductal dilation. Pancreas: Unremarkable. No ductal dilation. Spleen: Unremarkable. No splenomegaly. Adrenals: Unremarkable. No mass. Kidneys and ureters: Unremarkable. No obstructing stones. No hydronephrosis. Stomach and bowel: No mucosal thickening. Focally distended duodenum. PELVIS: Appendix: No findings to suggest acute appendicitis. Bladder: Thickening of the bladder wall is concerning for cystitis. No stones. Reproductive: The uterus is enlarged. ABDOMEN and PELVIS: Intraperitoneal space: Unremarkable. No free air. No significant fluid collection. Bones/joints: No acute fracture. No dislocation. Soft tissues: Unremarkable. Vasculature: Unremarkable. No abdominal aortic aneurysm. Lymph nodes: Unremarkable. No enlarged lymph nodes. IMPRESSION: 1. Thickening of the bladder wall is concerning for cystitis. 2. Focally distended duodenum. Cannot exclude early obstruction. 3. The uterus is enlarged. This is indeterminate, clinical correlation is recommended.
[2024-01-19] MEDS ORDERED: ONDANSETRON INJ 2 MG/ML 2 ML VIAL IV PRN ×2 (03:04→07:13)
[2024-01-19] MEDS ORDERED: ALUMINUM/MAGNESIUM/SIMETH (MAALOX MAX) 30 ML UDC PO PRN (03:04)
[2024-01-19] MEDS ORDERED: MAGNESIUM HYDROXIDE SUSP 30 ML UDC PO PRN (03:04)
[2024-01-19] MEDS ORDERED: POLYETHYLENE (MIRALAX) 17 GM PACK PO PRN (03:04)
[2024-01-19] MEDS ORDERED: LORazepam 0.5 MG TAB PO PRN (03:04)
[2024-01-19] MEDS ORDERED: GENTAMICIN CONSULT ACTIVE PRN (03:04)
[2024-01-19] MEDS ORDERED: ACETAMINOPHEN 325 MG TAB PO PRN (03:04)
--- NOTE | 2024-01-19 03:15 | Gynecologic Progress Note ---
Date of Service January 19, 2024 Subjective Patient has decided to stay for pain control and IV AB's, after long discussion with her partner and ER Attending physician. Plan to admit for observation, continue with pain management, alternate with IV tylenol,Toradol and Dilaudid Allergic to PNC: Reaction, Chest pain IV Clindan+ Gent Repeat labs in am Continue to monitor Results & Data Vital Signs (Past 12 Hours) Vital Signs Temp Pulse Pulse Resp BP BP Pulse Ox 01/19/24 03:00 68 13 102/71 97 01/19/24 02:00 70 17 115/69 95 01/19/24 01:30 84 19 96 01/19/24 00:30 67 16 123/71 97 01/19/24 00:11 66 01/18/24 23:00 69 18 122/71 100 01/18/24 20:17 72 01/18/24 20:17 73 20 113/82 100 01/18/24 19:12 36.8 C 101 H 19 171/99 H 99 O2 Del Method 01/19/24 03:00 Room Air 01/19/24 02:00 Room Air 01/19/24 01:30 Room Air 01/19/24 00:30 Room Air 01/19/24 00:11 01/18/24 23:00 Room Air 01/18/24 20:17 01/18/24 20:17 Room Air 01/18/24 19:12 Room Air
[2024-01-19] MEDS: LACTATED RINGER'S 1,000 ML IV SCH (04:07)
[2024-01-19] MEDS: CLINDAMYCIN/D5W 900 MG/50 ML BAG IV SCH (04:08)
[2024-01-19] MEDS: HYDROmorphone INJ 1 MG/ML SYRINGE IV PRN (04:12)
[2024-01-19 04:16] LABS: Basophils # (auto) 0.05 K/uL (0.00-0.20); Basophils % (auto) 0.5 %; Hematocrit (blood only) 30.6 % (37.0-47.0); Hemoglobin 10.3 g/dl (12.0-16.0); Immature Granulocytes # (auto) 0.04 K/uL (0.01-0.20); Immature Granulocytes % (auto) 0.4 %; Lymphocytes # (auto) 1.37 K/uL (1.20-3.40); Lymphocytes % (auto) 13.2 %; Mean Corpuscular Hemoglobin 30.2 pg (25.0-34.0); Mean Corpuscular Hgb Conc 33.7 g/dL (32.0-36.0); Mean Corpuscular Volume 89.7 fL (80.0-100.0); Mean Platelet Volume 10.2 fL (9.4-12.4); Monocytes # (auto) 1.06 K/uL (0.11-0.59); Monocytes % (auto) 10.2 %; Neutrophils # (auto) 7.78 K/uL (1.40-6.50); Neutrophils % (auto) 74.7 %; Platelet Count 183 K/uL (130-400); RDW Coefficient of Variation 12.9 % (11.5-14.5); RDW Standard Deviation 42.5 fL (36.4-46.3); Red Blood Count 3.41 M/uL (4.20-5.40)
[2024-01-19] MEDS: KETOROLAC TROMETHAMINE 15 MG/ML VIAL IV PRN (05:34)
[2024-01-19] MEDS: GENTAMICIN SULFATE 100 MG in DEXTROSE 5% 100 ML IV SCH (05:35)
[2024-01-19] MEDS: ACETAMINOPHEN 1,000 MG/100 ML VIAL IV PRN (07:35)
[2024-01-19] MEDS: LEVOTHYROXINE SODIUM 25 MCG TABLET PO SCH (08:12)
--- NOTE | 2024-01-19 08:33 | Pharmacy Report ---
Pharmacy PK ABX Note - Date of Service January 19, 2024 - Assessment and Plan Assessment 33 year old F receiving empiric gentamicin and clindamycin for treatment of endometritis s/p recent spontaneous . Patient admitted for observation in the hospital. Leukocytosis noted on presentation (WBC: 13.7 K), afebrile. Day # 1 of antimicrobial therapy. Plan Gentamicin * Initiated on conventional gentamicin dosing 100 mg (1.5 mg/kg of actual body weight) IV q8h * Will continue this regimen and obtain peak/trough levels once at steady-state if therapy is to be continued Clindamycin * 900 mg IV q8h - dosed appropriately for indication Pharmacy will continue to follow and will adjust dose/frequency as necessary. Thank you. Pharmacy has transitioned to AUC monitoring for vancomycin. AUC/DELONTE is the preferred PK/PD target and is associated with decreased risk of nephrotoxicity compared to traditional trough targets.
--- NOTE | 2024-01-19 13:20 | Progress Note ---
Date of Service January 19, 2024 Assessment & Plan (1) Incomplete spontaneous : Plan: Pt discussed with Dr Shore Pt doing well No complaints wishes to be discharged home Admission and Anticipated Discharge Date Admission Date: January 19, 2024 Results & Data Vital Signs (Past 12 Hours) Vital Signs Temp Pulse Pulse Pulse Resp BP BP 01/19/24 07:30 01/19/24 07:30 37.2 C 75 16 113/67 01/19/24 05:57 36.8 C 70 18 107/64 01/19/24 05:30 36.8 C 70 18 107/64 01/19/24 05:00 37.1 C 70 16 127/76 01/19/24 04:36 72 14 01/19/24 04:13 90 01/19/24 03:00 68 13 102/71 01/19/24 02:00 70 17 115/69 01/19/24 01:30 84 19 Pulse Ox O2 Del Method 01/19/24 07:30 Room Air 01/19/24 07:30 96 Room Air 01/19/24 05:57 96 Room Air 01/19/24 05:30 96 Room Air 01/19/24 05:00 98 Room Air 01/19/24 04:36 96 Room Air 01/19/24 04:13 01/19/24 03:00 97 Room Air 01/19/24 02:00 95 Room Air 01/19/24 01:30 96 Room Air
--- NOTE | 2024-01-19 18:15 | Discharge Summary ---
Date of Service January 19, 2024 Admission HPI Per Admitting Provider SEE HPI by admitting doc Hospital Course (1) Incomplete spontaneous : disch home with instructions (2) History of infertility: (3) History of endometriosis: (4) Uterine fibroids affecting :
--- OUTSIDE RECORDS SUMMARY | 2024-01-20 18:31 | External Medical Summary | Summary of Care ---
Author Name Unknown Organization [facility] [address] [place] [address] Phone [phone] Care Team Providers Care [employer] Supervisor Name Role Phone Martha Mayorga DO Primary Care Provider [phone] Encounter Details Date Type Department Care Team (Late st Contact Info) Description 01/19/2024 Orders Only [facility] [address] [place] [id number] Dominga Foster MD [address] [place] [id number] Allergies Active Allergy Reactions Criticality Noted Date Comments Oxycodone Nausea/vomiting 03/17/2018 Penicillins Other (Please comment) 01/10/2015 Chest pain Other reaction(s): Chest Pain documented as of this encounter (statuses as of 01/19/2024) Medications Medication Sig Dispensed Refills Start Date End Date Status Lidocaine Viscous HCl 2 % Mouth/Throat SolutionIndications:So re throat (viral) Swish and spit as needed for Pain, Moderate. 100 mL 06/27/2023 Active guaiFENesin-Codeine 100-10 MG/5ML Oral Syrup (Robitussin AC)Indications:Sore throat (viral) Take 5 mL by mouth every 4 hours as needed for Cough. 120 mL 06/27/2023 Active documented as of this encounter (statuses as of 01/19/2024) Active Problems Problem Noted Date Diagnosed Date Endometriosis determined by laparoscopy 03/18/20 18 documented as of this encounter (statuses as of 01/19/2024) Resolved Problems Problem Noted Date Diagnosed Date Resolved Date Abdominal pain, generalized 03/19/2022 03/23/2023 Diarrhea 03/19/2022 03/23/2023 Unilateral inguinal hernia w ithout obstruction or gangrene 05/12/2018 08/20/2021 Cyst of ovary 03/17/2018 03/23/2023 Multiple pigmented nevi 11/20/2016 03/0 08/2018 Tinea versicolor 11/20/2016 10/08/2018 documented as of this encounter (statuses as of 01/19/2024) Immunizations Name Administration Dates Next Due HPV Vaccine, 4-Valent 04/19/2008,12/20/2007,10/08 MMR - Measles/Mumps/Rubella Vaccine 12/08/2000,0 04/09/1991 OPV - Polio Virus Vaccine (Oral) 02/07/1992,10/10,04/09/1991 TDAP (age 10 and older)(Boostrix) 02/28/2015 documented as of this encounter Social History Tobacco Use Types Packs/Day Years Used Date Smoking Tobacco: Never Passive Smoke Exposure: Never Smokeless Tobacco: Never Alcohol Use Standard Drinks/Week Comments No 0 (1 standard drink = 0.6 oz pur e alcohol) rare PHQ-2 Answer Date Recorded PHQ Adult Total Score 0 04/22/2022 Hunger Vital Sign Answer Date Recorded Worried About Running Out of Food in the Last Ye ar Never true 02/01/2020 Ran Out of Food in the Last Year Never true 02/01/2020 Sex and Gender Information Value Date Recorded Sex Assigned at Female 02/01/2020 9:32 AM EDT Gender Identity Female 02/01/2020 9:32 AM EDT Sexual Orientation Choose not to disclose 2019 9:32 AM EDT Job Start Date Occupation Industry Not on file Not on file Not on file documented as of this encounter Plan of Treatment Health Maintenance Due Date Last Done Comments HIV Screening 2004 Hepatitis C Screening 2007 Hepatitis B (1 of 3 - 19+ 3-dose series) 2008 HPV/Co-Test 2019 COVID-19 Vaccine ( - 2022-2 4 season) 2023 Depression Screening 04/22/2023 04/22/2022 Cervical Cancer Screening 04/25/2023 Pap Smear 04/25/2023 04/25/2020, 11/05/2016 Influenza Vaccine (FLU shot) (Season Ended) 2024 DTaP,Tdap,and Td Vaccines (2 - Td or Tdap) 02/28/2025 02/28/2015 GARDASIL-HPV IMMUNIZATION SERIES Completed 04/19/2008, 12/20/2007, 10/18/2007 MENINGOCOCCAL (MENACTRA/MENVEO) Aged Out No longer eligible b ased on patient's age to complete this topic Pneumococcal Vaccine: Pediatrics (0 to 5 Years) and At-Risk Patients (6 to 64 Years) Aged Out No longer eligible b ased on patient's age to complete this topic documented as of this encounter Medical Devices Not on filedocumented as of this encounter Procedures Procedure Name Priority Date/Time Associated Diagnosis Comments CHEMISTRY-OUTSIDE Routine 01/19/2024 documented in this encounter Results * (ABNORMAL) CHEMISTRY-OUTSIDE (01/19/2024) Not all results display below - see scan for full detail OUTSIDE LAB (SEE SCANNED REPORT) Comment:SEE SCAN; [facility] CREATININE-OUTSID E LAB OUTSIDE LAB (SEE SCANNED REPORT) EGFR-OUTSIDE LAB OUT SIDE LAB (SEE SCANNED REPORT) POTASSIUM-OUTSIDE LAB OUTSIDE LAB (SEE SCANNED REPORT) GLUCOSE-OUTSIDE LAB OUTSIDE LAB (SEE SCANNED REPORT) HOURS FASTING OUTSID E LAB (SEE SCANNED REPORT) TRIGLYCERIDES-OUT SIDE LAB OUTSIDE LAB (SEE SCANNED REPORT) CHOLESTEROL-OUTSI DE LAB OUTSIDE LAB (SEE SCANNED REPORT) HDL-OUTSIDE LAB OUTS [facility] LAB (SEE SCANNED REPORT) CHOL/HDL RATIO-OUTSIDE LAB OUTSIDE LA B (SEE SCANNED REPORT) LDL (CALCULATED)-OUTS [facility] LAB OUTSIDE LAB (SEE SCANNED REPORT) LDL (DIRECT MEASURE)-OUTSIDE LAB OUTSIDE LAB (SEE SCANNED REPORT) HEMOGLOBIN, T2V-OXZKDPS LAB OUTSIDE LAB (SEE SCANNED REPORT) PHOSPHORUS-OUTSID E LAB OUTSIDE LAB (SEE SCANNED REPORT) PTH-OUTSIDE LAB OUTS [facility] LAB (SEE SCANNED REPORT) MICROALBUMIN RATIO-OUTSIDE LAB OUTSIDE LA B (SEE SCANNED REPORT) PROTEIN, UA-OUTSIDE LAB OUTSIDE LAB (SEE SCANNED REPORT) HGB 10.3(L) 12.0 - 16.0 G/DL OUTSIDE LAB (SEE SCANNED REPORT) 01/19/2024 Hillary Andrews MD LABORATORY OUTSIDE LAB (SEE SCANNED REPORT) documented in this encounter Care Teams [employer] Supervisor Relationship Specialty Start Date End Date Martha Mayorga DO [address] [facility] [facility] [place] [address] PCP - General Family Medicine 05/12/18 documented as of this encounter
== END 2024-01-19 13:55 | disposition home or self-care (01) ==
LOC: ED 19:10 → 4E1 19:10